=== PATIENT | female | born 1990 | race African-American/Black ===

== ENCOUNTER 2017-08-28 15:14 | Inpatient (IN) | payer BC ==
[2017-08-28] MEDS ORDERED: Nalbuphine 20 MG/1 ML Amp IVPUSH PRN (16:11)
[2017-08-28] MEDS ORDERED: Sodium Chloride 0.9% 10 ML Syringe FLUSH PRN (16:11)
[2017-08-28] MEDS ORDERED: Ondansetron 4 MG/2 ML SDV IVPUSH PRN (16:11)
[2017-08-28] MEDS ORDERED: Oxytocin/Lactated Ringers 10 UNIT/1,000 ML BAG IV SCH (16:15)
--- NOTE | 2017-08-28 16:22 | PCM.LDHP ---
L&D History of Present Illness - General Date of Service: 08/28/17 Admit Problem/Dx: Patient Status Order with Admit Dx/Problem 08/28/17 16:11 Patient Status [ADT] Routine Admission Diagnosis/Problem Admission Diagnosis/Problem Normal labor Source of Information: Patient History Limitations: Reports: No Limitations - History of Present Illness Introduction:: Patient is a 26 y/o at 40 5/7 wks who presents for labor. Was seen overnight for concerns of labor, but was only 2 cm dilated and opted for discharge to home. Throughout the day contractions have worsened. Now stronger and closer together. Otherwise doing well. 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 (Approximate): Social & Family History - Tobacco Use Smoking Status *Q: Never Smoker - Alcohol Use Alcohol Use History: No - Recreational Drug Use Recreational Drug Use: No H&P Review of Systems - Review of Systems: Review Of Systems: See Below General: Reports: No Symptoms Pulmonary: Reports: No Symptoms Cardiovascular: Reports: No Symptoms Gastrointestinal: Reports: Abdominal Pain Genitourinary: Reports: No Symptoms Musculoskeletal: Reports: No Symptoms L&D Exam - Exam Exam: See Below - Vital Signs Weight: 76.204 kg - OB Specific Contraction Intensity: Moderate Movement: Active Heart Tones: Present Heart Tones per Min: 135 Heart Rate (FHR) Variability: Moderate (6-25 bmp) Presentation: Vertex - Rogers Score Rogers Score Cervix Position: Posterior Rogers Score Consistency: Soft Rogers Score Effacement: >80% Rogers Score Dilation: 1-2 cm Rogers Score Infant's Station: -2 Rogers Score Total: 7 - Exam General: Alert, Oriented, Cooperative Lungs: Clear to Auscultation, Normal Respiratory Effort Cardiovascular: Regular Rate, Regular Rhythm GI/Abdominal Exam: Soft, Non-Tender Genitourinary: Normal external exam Extremities: Normal Inspection Skin: Warm, Dry, Intact - Problem List (1) 40 weeks gestation of SNOMED Code(s): 92435609 ICD Code: Z3A.40 - 40 WEEKS GESTATION OF Status: Acute Current Visit: Yes (2) Normal labor SNOMED Code(s): 62826747 ICD Code: O80 - ENCOUNTER FOR FULL-TERM UNCOMPLICATED DELIVERY; Z37.9 - OUTCOME OF DELIVERY, UNSPECIFIED Status: Acute Current Visit: Yes (3) Spontaneous rupture of membranes SNOMED Code(s): 523297043 ICD Code: [id number] - Status: Acute Current Visit: Yes Problem List Initiated/Reviewed/Updated: Yes Orders Last 24hrs: Active Orders 24 hr Category Date Time Status Patient Status [ADT] Routine ADT 08/28/17 16:11 Active Activity as Tolerated [RC] PFP Care 08/28/17 16:11 Active Communication Order [RC] ASDIRECTED Care 08/28/17 16:11 Active Heart Tones [RC] ASDIRECTED Care 08/28/17 16:12 Active Notify Provider [RC] PFP Care 08/28/17 16:11 Active Notify Provider [RC] PRN Care 08/28/17 16:11 Active Peripheral IV Care [RC] . DIRECTED Care 08/28/17 16:12 Active Vital Signs [RC] PER UNIT ROUTINE Care 08/28/17 16:11 Active Regular Diet [DIET] Diet 08/28/17 Dinner Active AMNISURE RUPTURE MEMBRAN [BF] Routine Lab 08/28/17 16:10 Received CBC W/O DIFF,HEMOGRAM [HEME] Routine Lab 08/28/17 16:11 Ordered TYPE AND SCREEN [BBK] Routine Lab 08/28/17 16:11 Ordered Lactated Ringers [Ringers, Lactated] 1,000 ml Med 08/28/17 16:15 Active IV ASDIRECTED Nalbuphine [Nubain] Med 08/28/17 16:11 Active 10 mg IVPUSH Q2H PRN Ondansetron [Zofran] Med 08/28/17 16:11 Active 4 mg IVPUSH Q4H PRN Oxytocin/Lactated Ringers [Pitocin in LR 10 Units/1,000 Med 08/28/17 16:15 Active ML] 10 unit in 1,000 ml IV .CONTINUOUS Sodium Chloride 0.9% [Saline Flush] Med 08/28/17 16:11 Active 10 ml FLUSH ASDIRECTED PRN Electronic Heart Tones Ext w TOCO [WOMSER] Oth 08/28/17 16:11 Ordered Routine Electronic Heart Tones Internal [WOMSER] Per Unit Oth 08/28/17 16:11 Ordered Routine Peripheral IV Insertion Adult [OM.PC] Routine Oth 08/28/17 16:11 Ordered Resuscitation Status Routine Resus Stat 08/28/17 16:11 Ordered Medication Orders Lactated Ringer's (Ringers, Lactated) 1,000 mls @ 100 mls/hr IV ASDIRECTED JOSE LUIS Oxytocin/Lactated Ringer's (Pitocin In Lr 10 Units/1,000 Ml) 10 unit in 1,000 mls @ 500 mls/hr IV .CONTINUOUS JOSE LUIS Nalbuphine HCl (Nubain) 10 mg IVPUSH Q2H PRN PRN Reason: Pain (moderate 4-6) Ondansetron HCl (Zofran) 4 mg IVPUSH Q4H PRN PRN Reason: Nausea/Vomiting Sodium Chloride (Saline Flush) 10 ml FLUSH ASDIRECTED PRN PRN Reason: Keep Vein Open Assessment/Plan Comment:: 26 y/o at 40 5/7 wks presents in labor/SROM * CBC and T&S * GBS negative, no need for antibiotics * Pain management per patient preference * Anticipate
[2017-08-28] MEDS ORDERED: FLU Vacc QS 2017-18 (6mos UP)/PF 60 MCG/0.5 ML Syringe IM ONE (17:55)
[2017-08-28] MEDS ORDERED: fentaNYL 100 MCG/2 ML SDV EPIDUR PRN (21:57)
[2017-08-28] MEDS ORDERED: ePHEDrine 50 MG/ML SDV IVPUSH PRN (21:57)
[2017-08-28] MEDS ORDERED: diphenhydrAMINE 50 MG/ML SDV IVPUSH PRN (21:57)
[2017-08-28] MEDS ORDERED: Bupivacaine/fentaNYL/NS 100 ML Bag EPIDUR SCH (22:00)
[2017-08-28] MEDS: Lactated Ringers 1,000 ML IV SCH ×2 (22:40→23:14)
--- NOTE | 2017-08-29 01:12 | PCM.PREANE ---
Preanesthetic Assessment - Anesthesia/Transfusion/Family Hx Anesthesia History: No Prior Anesthesia Family History of Anesthesia Reaction: No Transfusion History: No Prior Transfusion(s) Intubation History: Unknown - Review of Systems General: No Symptoms Pulmonary: No Symptoms Cardiovascular: No Symptoms Neurological: No Symptoms Other: Reports: None - Physical Assessment O2 Sat by Pulse Oximetry: 97 Respiratory Rate: 20 Vital Signs: Last Vital Signs Temp 37.1 C 08/28/17 16:11 Pulse 88 08/28/17 16:11 Resp 20 08/28/17 16:11 BP 108/68 08/28/17 16:11 Pulse Ox 97 08/28/17 16:11 Height: 1.68 m Weight: 76.204 kg ASA Class: 2 Mental Status: Alert & Oriented x3 Airway Class: Mallampati = 1 Dentition: Reports: Normal Dentition Thyro-Mental Finger Breadths: 3 Mouth Opening Finger Breadths: 3 ROM/Head Extension: Full Lungs: Clear to Auscultation, Normal Respiratory Effort Cardiovascular: Regular Rate, Regular Rhythm - Lab Values: Laboratory Last Values WBC 10.31 K/mm3 (3.98-10.04) H 08/28/17 16:35 RBC 4.88 M/mm3 (3.98-5.22) 08/28/17 16:35 Hgb 14.4 gm/L (11.2-15.7) 08/28/17 16:35 Hct 42.8 % (34.1-44.9) 08/28/17 16:35 MCV 87.7 fl (79.4-94.8) 08/28/17 16:35 MCH 29.5 pg (25.6-32.2) 08/28/17 16:35 MCHC 33.6 g/dl (32.2-35.5) 08/28/17 16:35 RDW Std Deviation 44.0 fL (36.4-46.3) 08/28/17 16:35 Plt Count 162 K/mm3 (182-369) L 08/28/17 16:35 MPV 10.7 fl (9.4-12.3) 08/28/17 16:35 Membrane Rupture Positive H 08/28/17 16:10 Blood Type B POSITIVE 08/28/17 16:33 Gel Antibody Screen Negative 08/28/17 16:33 - Allergies Allergies/Adverse Reactions: Allergies Allergy/AdvReac Type Severity Reaction Status Date / Time No Known Allergies Allergy Verified 08/28/17 04:43 - Acknowledgements Anesthesia Type Planned: Epidural Pt an Appropriate Candidate for the Planned Anesthesia: Yes Alternatives and Risks of Anesthesia Discussed w Pt/Guardian: Yes Pt/Guardian Understands and Agrees with Anesthesia Plan: Yes PreAnesthesia Questionnaire - Past Health History Medical/Surgical History: Denies 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: - SUBSTANCE USE Smoking Status *Q: Never Smoker Tobacco Use Within Last Twelve Months: No Second Hand Smoke Exposure: No Recreational Drug Use History: No - HOME MEDS Home Medications: Home Meds Ferrous Sulfate [Slow Fe] 325 mg PO DAILY 08/28/17 [History] Prenat Vit Comb.10/Iron/Fa/Dha [Vitafol-OB + DHA] 1 tab PO DAILY 08/28/17 [ History] - CURRENT (IN HOUSE) MEDS Current Meds: Current Medications Diphenhydramine HCl (Benadryl) 25 mg IVPUSH Q6H PRN PRN Reason: Pruritis Ephedrine Sulfate (Ephedrine Sulfate) 5 mg IVPUSH ASDIRECTED PRN PRN Reason: Hypotension Fentanyl (Sublimaze) 100 mcg EPIDUR ONETIME PRN PRN Reason: Pain Last Admin: 08/29/17 00:48 Dose: 100 mcg Fentanyl/Bupivacaine HCl (Fentanyl/Bupivacaine/Ns 2 Mcg-0.125% 100 Ml) 100 ml EPIDUR ASDIRECTED JOSE LUIS Last Admin: 08/29/17 00:48 Dose: 100 ml Lactated Ringer's (Ringers, Lactated) 1,000 mls @ 100 mls/hr IV ASDIRECTED JOSE LUIS Last Admin: 08/28/17 23:14 Dose: 100 mls/hr Oxytocin/Lactated Ringer's (Pitocin In Lr 10 Units/1,000 Ml) 10 unit in 1,000 mls @ 500 mls/hr IV .CONTINUOUS [facility] Nalbuphine HCl (Nubain) 10 mg IVPUSH Q2H PRN PRN Reason: Pain (moderate 4-6) Last Admin: 08/28/17 22:32 Dose: 10 mg Ondansetron HCl (Zofran) 4 mg IVPUSH Q4H PRN PRN Reason: Nausea/Vomiting Sodium Chloride (Saline Flush) 10 ml FLUSH ASDIRECTED PRN PRN Reason: Keep Vein Open Discontinued Medications Influenza Virus Vaccine (Flulaval Quad [id number]) 60 mcg IM ONETIME ONE Stop: 08/28/17 17:56
[2017-08-29] MEDS: Lactated Ringers 1,000 ML IV SCH ×2 (01:25→03:20)
--- NOTE | 2017-08-29 08:10 | PCM.DEL ---
L & D Note - General Info Date of Service: 08/29/17 - Delivery Note Labor: Spontaneous Delivery Outcome: Livebirth Delivery Method: Spontaneous Vaginal Delivery-Single Delivery Mode: Spontaneous Presentation: Right Occiput Anterior (ELISE) Nuchal Cord: None Anesthesia Type: Epidural Amniotic Fluid Description: Clear Episiotomy Type: None Laceration: 2nd Degree, Perineal Suture type: Vicryl Suture size: 2-0 Placenta: Intact, Spontaneous Cord: 3 Vessels Estimated Blood Loss: 250 Resuscitation Needed: Yes : Bulb Syringe, Stimulated, Warmed, [place] Used Score 1 min: 9 Score 5 min: 9 Delivery Comments (Free Text/Narrative):: Patient found to be complete and began pushing. With maternal pushing effort head delivered from an ELISE presentation. No nuchal cord present. With gentle downward traction the shoulders and body delivered. Infant placed on maternal abdomen. Cord clamped and cut. Cord blood obtained. Placenta allowed time to separate and expelled. Inspection of the perineum showed a 2nd degree laceration which was repaired with a 2-0 vicryl in the typical fashion. - Patient Data Vitals - Most Recent: Last Vital Signs Temp 37.1 C 08/28/17 16:11 Pulse 88 08/28/17 16:11 Resp 20 08/29/17 01:11 BP 108/68 08/28/17 16:11 Pulse Ox 97 08/29/17 01:11 Weight - Most Recent: 76.204 kg I&O - Last 24 Hours: Intake & Output 08/28/17 08/29/17 08/29/17 22:59 06:59 14:59 Intake Total 5000 Balance 5000 Lab Results Last 24 Hours: Laboratory Results - last 24 hr 08/28/17 08/28/17 08/28/17 Range/Units 16:10 16:33 16:35 WBC 10.31 H (3.98-10.04) K/mm3 RBC 4.88 (3.98-5.22) M/mm3 Hgb 14.4 (11.2-15.7) gm/L Hct 42.8 (34.1-44.9) % MCV 87.7 (79.4-94.8) fl MCH 29.5 (25.6-32.2) pg MCHC 33.6 (32.2-35.5) g/dl RDW Std Deviation 44.0 (36.4-46.3) fL Plt Count 162 L (182-369) K/mm3 MPV 10.7 (9.4-12.3) fl Membrane Rupture Positive H Blood Type B POSITIVE Gel Antibody Screen Negative Med Orders - Current: Current Medications Diphenhydramine HCl (Benadryl) 25 mg IVPUSH Q6H PRN PRN Reason: Pruritis Ephedrine Sulfate (Ephedrine Sulfate) 5 mg IVPUSH ASDIRECTED PRN PRN Reason: Hypotension Fentanyl (Sublimaze) 100 mcg EPIDUR ONETIME PRN PRN Reason: Pain Last Admin: 08/29/17 00:48 Dose: 100 mcg Fentanyl/Bupivacaine HCl (Fentanyl/Bupivacaine/Ns 2 Mcg-0.125% 100 Ml) 100 ml EPIDUR ASDIRECTED JOSE LUIS Last Admin: 08/29/17 00:48 Dose: 100 ml Lactated Ringer's (Ringers, Lactated) 1,000 mls @ 100 mls/hr IV ASDIRECTED JOSE LUIS Last Admin: 08/29/17 03:20 Dose: 100 mls/hr Oxytocin/Lactated Ringer's (Pitocin In Lr 10 Units/1,000 Ml) 10 unit in 1,000 mls @ 500 mls/hr IV .CONTINUOUS JOSE LUIS Nalbuphine HCl (Nubain) 10 mg IVPUSH Q2H PRN PRN Reason: Pain (moderate 4-6) Last Admin: 08/28/17 22:32 Dose: 10 mg Ondansetron HCl (Zofran) 4 mg IVPUSH Q4H PRN PRN Reason: Nausea/Vomiting Sodium Chloride (Saline Flush) 10 ml FLUSH ASDIRECTED PRN PRN Reason: Keep Vein Open Discontinued Medications Influenza Virus Vaccine (Flulaval Quad [id number]) 60 mcg IM ONETIME ONE Stop: 08/28/17 17:56 - Problem List & Annotations (1) 40 weeks gestation of SNOMED Code(s): 09582236 Code(s): Z3A.40 - 40 WEEKS GESTATION OF Status: Acute Current Visit: Yes (2) Normal labor SNOMED Code(s): 14658854 Code(s): O80 - ENCOUNTER FOR FULL-TERM UNCOMPLICATED DELIVERY; Z37.9 - OUTCOME OF DELIVERY, UNSPECIFIED Status: Acute Current Visit: Yes (3) Spontaneous rupture of membranes SNOMED Code(s): 061591123 Code(s): AVD1747 - Status: Acute Current Visit: Yes (4) Vaginal delivery SNOMED Code(s): 310958035 Code(s): O80 - ENCOUNTER FOR FULL-TERM UNCOMPLICATED DELIVERY Status: Acute Current Visit: Yes - Problem List Review Problem List Initiated/Reviewed/Updated: Yes - My Orders Last 24 Hours: My Active Orders 08/28/17 16:11 Patient Status [ADT] Routine Activity as Tolerated [RC] PFP Communication Order [RC] ASDIRECTED Notify Provider [RC] PFP Notify Provider [RC] PRN Vital Signs [RC] PER UNIT ROUTINE Nalbuphine [Nubain] 10 mg IVPUSH Q2H PRN Ondansetron [Zofran] 4 mg IVPUSH Q4H PRN Sodium Chloride 0.9% [Saline Flush] 10 ml FLUSH ASDIRECTED PRN Electronic Heart Tones Ext w TOCO [WOMSER] Routine Electronic Heart Tones Internal [WOMSER] Per Unit Routine Peripheral IV Insertion Adult [OM.PC] Routine Resuscitation Status Routine 08/28/17 16:12 Peripheral IV Care [RC] . DIRECTED 08/28/17 16:15 Lactated Ringers [Ringers, Lactated] 1,000 ml IV ASDIRECTED Oxytocin/Lactated Ringers [Pitocin in LR 10 Units/1,000 ML] 10 unit in 1,000 ml IV .CONTINUOUS 08/28/17 Dinner Regular Diet [DIET] 08/29/17 07:31 Urinary Catheter Assessment [RC] ASDIRECTED 08/29/17 08:08 Patient Status Manage Transfer [TRANSFER] Routine - Assessment Assessment:: 26 y/o G1 now P1001 PPD#0 from at 40 6/7 wks - Plan Plan:: * Routine cares * Encourage breast feeding * Discharge home in 1-2 days
[2017-08-29] MEDS ORDERED: Witch Hazel Medicated Pads 100/Jar TOP PRN (09:04)
[2017-08-29] MEDS ORDERED: Docusate Sodium 100 MG Cap PO PRN (09:04)
[2017-08-29] MEDS ORDERED: Lanolin 100% Cream 7 GM Tube TOP PRN (09:04)
[2017-08-29] MEDS ORDERED: Acetaminophen 325 MG Tab PO PRN (09:04)
--- NOTE | 2017-08-29 14:47 | PCM48HPAN ---
Post Anesthesia Note - EVALUATION WITHIN 48HRS OF ANESTHETIC Vital Signs in Normal Range: Yes Patient Participated in Evaluation: Yes Respiratory Function Stable: Yes Airway Patent: Yes Cardiovascular Function Stable: Yes Hydration Status Stable: Yes Pain Control Satisfactory: Yes Nausea and Vomiting Control Satisfactory: Yes Mental Status Recovered: Yes - COMMENTS/OBSERVATIONS Free Text/Narrative:: Hafsa is sitting up at the side of her bed with her family. She is very satisfied with her epidural pain control. She has been up walking around today. Baby is in the room and doing well. She denies any weakness and/or numbness and tingling in her lower extremities. She denies headache. She has some soreness at the epidural insertion site. She states it is mild. She was encouraged to call if she had any further concerns and/or if her back soreness worsened. No apparent complications noted at this time.
[2017-08-29] MEDS: Benzocaine/Menthol 20%-0.5% Spray 56 GM Canister TOP PRN (17:00)
[2017-08-29] MEDS: Ibuprofen 600 MG Tab PO PRN (22:16)
--- NOTE | 2017-08-30 06:45 | PCM.PNPP ---
- General Info Date of Service: 08/30/17 Functional Status: Reports: Pain Controlled, Tolerating Diet, Ambulating, Urinating - Review of Systems General: Reports: No Symptoms Pulmonary: Reports: No Symptoms Cardiovascular: Reports: No Symptoms Gastrointestinal: Reports: No Symptoms Genitourinary: Reports: No Symptoms Musculoskeletal: Reports: No Symptoms - Patient Data Vital Signs - Most Recent: Last Vital Signs Temp 36.8 C 08/30/17 03:58 Pulse 77 08/30/17 03:58 Resp 12 08/30/17 03:58 BP 109/76 08/30/17 03:58 Pulse Ox 99 08/30/17 03:58 Weight - Most Recent: 76.204 kg I&O - Last 24 Hours: Intake & Output 08/29/17 08/29/17 08/30/17 14:59 22:59 06:59 Intake Total 5000 Balance 5000 Med Orders - Current: Current Medications Acetaminophen (Tylenol) 650 mg PO Q4H PRN PRN Reason: mild pain or fever Benzocaine/Menthol (Dermoplast Pain Relief [place]) 0 gm TOP ASDIRECTED PRN PRN Reason: Perineal Comfort Measure Last Admin: 08/29/17 17:00 Dose: 1 can Docusate Sodium (Colace) 100 mg PO BID PRN PRN Reason: Constipation Emollient Ointment (Lansinoh Hpa) 0 gm TOP ASDIRECTED PRN PRN Reason: Sore Nipples Ibuprofen (Motrin) 600 mg PO Q6H PRN PRN Reason: Mild pain or fever Last Admin: 08/29/17 22:16 Dose: 600 mg Witch Celeste (Tucks) 1 pad TOP ASDIRECTED PRN PRN Reason: Hemorrhoid pain Last Admin: 08/29/17 17:01 Dose: 1 container Discontinued Medications Diphenhydramine HCl (Benadryl) 25 mg IVPUSH Q6H PRN PRN Reason: Pruritis Ephedrine Sulfate (Ephedrine Sulfate) 5 mg IVPUSH ASDIRECTED PRN PRN Reason: Hypotension Fentanyl (Sublimaze) 100 mcg EPIDUR ONETIME PRN PRN Reason: Pain Last Admin: 08/29/17 00:48 Dose: 100 mcg Fentanyl/Bupivacaine HCl (Fentanyl/Bupivacaine/Ns 2 Mcg-0.125% 100 Ml) 100 ml EPIDUR ASDIRECTED JOSE LUIS Last Admin: 08/29/17 00:48 Dose: 100 ml Lactated Ringer's (Ringers, Lactated) 1,000 mls @ 100 mls/hr IV ASDIRECTED [facility] Last Admin: 08/29/17 03:20 Dose: 100 mls/hr Oxytocin/Lactated Ringer's (Pitocin In Lr 10 Units/1,000 Ml) 10 unit in 1,000 mls @ 500 mls/hr IV .CONTINUOUS [facility] Influenza Virus Vaccine (Flulaval Quad [id number]) 60 mcg IM ONETIME ONE Stop: 08/28/17 17:56 Nalbuphine HCl (Nubain) 10 mg IVPUSH Q2H PRN PRN Reason: Pain (moderate 4-6) Last Admin: 08/28/17 22:32 Dose: 10 mg Ondansetron HCl (Zofran) 4 mg IVPUSH Q4H PRN PRN Reason: Nausea/Vomiting Sodium Chloride (Saline Flush) 10 ml FLUSH ASDIRECTED PRN PRN Reason: Keep Vein Open - Infant Interaction Disposition, : in Room with Family Interaction: Holding Infant Infant Feeding: Attempted ; Nursed Fair/Poor Support Person: - Recovery Exam Fundal Tone: Firm Fundal Level: 2 Fingerbreadths Below Umbilicus Fundal Placement: Midline Lochia Amount: Scant Lochia Color: Rubra/Red Perineum Description: Edematous Other Perinuem Description: 2nd degree laceration with repair Episiotomy/Laceration: Approximated Bladder Status: Nonpalpable Urinary Elimination: Voided - Exam General: Alert, Oriented, Cooperative GI/Abdominal Exam: Soft, Non-Tender Extremities: Normal Inspection Skin: Warm, Dry, Intact - Problem List & Annotations (1) 40 weeks gestation of SNOMED Code(s): 65410958 Code(s): Z3A.40 - 40 WEEKS GESTATION OF Status: Acute Current Visit: Yes (2) Normal labor SNOMED Code(s): 20336873 Code(s): O80 - ENCOUNTER FOR FULL-TERM UNCOMPLICATED DELIVERY; Z37.9 - OUTCOME OF DELIVERY, UNSPECIFIED Status: Acute Current Visit: Yes (3) Spontaneous rupture of membranes SNOMED Code(s): 711360673 Code(s): DTP4799 - Status: Acute Current Visit: Yes (4) Vaginal delivery SNOMED Code(s): 086376940 Code(s): O80 - ENCOUNTER FOR FULL-TERM UNCOMPLICATED DELIVERY Status: Acute Current Visit: Yes - Problem List Review Problem List Initiated/Reviewed/Updated: Yes - My Orders Last 24 Hours: My Active Orders 08/29/17 09:04 Activity as Tolerated [RC] PER UNIT ROUTINE Vital Signs [RC] 04,12,20 Acetaminophen [Tylenol] 650 mg PO Q4H PRN Benzocaine/Menthol [Dermoplast Pain Relief [place]] See Dose Instructions TOP ASDIRECTED PRN Docusate Sodium [Colace] 100 mg PO BID PRN Ibuprofen [Motrin] 600 mg PO Q6H PRN Lanolin [Lansinoh HPA] See Dose Instructions TOP ASDIRECTED PRN Witch Celeste [Tucks] 1 pad TOP ASDIRECTED PRN Assess Lochia [WOMSER] Per Unit Routine Assess Uterine Involution [WOMSER] Per Unit Routine Breast Pump [WOMSER] Per Unit Routine Heat Therapy [OM.PC] PRN Ice Therapy [OM.PC] Per Unit Routine Perineal Care [OM.PC] Per Unit Routine Peripheral IV Discontinue [OM.PC] Routine Sitz Bath [OM.PC] Per Unit Routine 08/29/17 Breakfast Regular Diet [DIET] 08/30/17 09:04 Heat Therapy [OM.PC] PRN - Assessment Assessment:: 26 y/o G1 now P1001 PPD#1 from at 40 6/7 wks - Plan Plan:: * Routine cares * Encourage breast feeding * Discharge home tomorrow
[2017-08-30] MEDS: Ibuprofen 600 MG Tab PO PRN ×2 (08:26→17:09)
[2017-08-31] MEDS: Ibuprofen 600 MG Tab PO PRN ×2 (04:34→11:02)
--- NOTE | 2017-08-31 07:07 | PCM.PNPP ---
- General Info Date of Service: 08/31/17 Functional Status: Reports: Pain Controlled, Tolerating Diet, Ambulating, Urinating - Review of Systems General: Reports: No Symptoms Pulmonary: Reports: No Symptoms Cardiovascular: Reports: No Symptoms Gastrointestinal: Reports: No Symptoms Genitourinary: Reports: No Symptoms - Patient Data Vital Signs - Most Recent: Last Vital Signs Temp 37.0 C 08/31/17 04:31 Pulse 80 08/31/17 04:31 Resp 12 08/31/17 04:31 BP 98/67 08/31/17 04:31 Pulse Ox 96 08/31/17 04:31 Weight - Most Recent: 76.204 kg I&O - Last 24 Hours: Intake & Output 08/30/17 08/31/17 08/31/17 22:59 06:59 14:59 Intake Total 120 Balance 120 Med Orders - Current: Current Medications Acetaminophen (Tylenol) 650 mg PO Q4H PRN PRN Reason: mild pain or fever Benzocaine/Menthol (Dermoplast Pain Relief [place]) 0 gm TOP ASDIRECTED PRN PRN Reason: Perineal Comfort Measure Last Admin: 08/29/17 17:00 Dose: 1 can Docusate Sodium (Colace) 100 mg PO BID PRN PRN Reason: Constipation Last Admin: 08/30/17 21:22 Dose: 100 mg Emollient Ointment (Lansinoh Hpa) 0 gm TOP ASDIRECTED PRN PRN Reason: Sore Nipples Last Admin: 08/30/17 17:07 Dose: 1 tube Ibuprofen (Motrin) 600 mg PO Q6H PRN PRN Reason: Mild pain or fever Last Admin: 08/31/17 04:34 Dose: 600 mg Witch Celeste (Tucks) 1 pad TOP ASDIRECTED PRN PRN Reason: Hemorrhoid pain Last Admin: 08/29/17 17:01 Dose: 1 container Discontinued Medications Diphenhydramine HCl (Benadryl) 25 mg IVPUSH Q6H PRN PRN Reason: Pruritis Ephedrine Sulfate (Ephedrine Sulfate) 5 mg IVPUSH ASDIRECTED PRN PRN Reason: Hypotension Fentanyl (Sublimaze) 100 mcg EPIDUR ONETIME PRN PRN Reason: Pain Last Admin: 08/29/17 00:48 Dose: 100 mcg Fentanyl/Bupivacaine HCl (Fentanyl/Bupivacaine/Ns 2 Mcg-0.125% 100 Ml) 100 ml EPIDUR ASDIRECTED [facility] Last Admin: 08/29/17 00:48 Dose: 100 ml Lactated Ringer's (Ringers, Lactated) 1,000 mls @ 100 mls/hr IV ASDIRECTED [facility] Last Admin: 08/29/17 03:20 Dose: 100 mls/hr Oxytocin/Lactated Ringer's (Pitocin In Lr 10 Units/1,000 Ml) 10 unit in 1,000 mls @ 500 mls/hr IV .CONTINUOUS [facility] Influenza Virus Vaccine (Flulaval Quad [id number]) 60 mcg IM ONETIME ONE Stop: 08/28/17 17:56 Last Admin: 08/30/17 21:08 Dose: 60 mcg Nalbuphine HCl (Nubain) 10 mg IVPUSH Q2H PRN PRN Reason: Pain (moderate 4-6) Last Admin: 08/28/17 22:32 Dose: 10 mg Ondansetron HCl (Zofran) 4 mg IVPUSH Q4H PRN PRN Reason: Nausea/Vomiting Sodium Chloride (Saline Flush) 10 ml FLUSH ASDIRECTED PRN PRN Reason: Keep Vein Open - Interaction Disposition, : [place] in Room with Family Interaction: Holding Infant Feeding: Attempted ; Nursed Fair/Poor Support Person: - Recovery Exam Fundal Tone: Firm Fundal Level: 2 Fingerbreadths Below Umbilicus Fundal Placement: Midline Lochia Amount: Small Lochia Color: Rubra/Red Perineum Description: Other (see below) Other Perinuem Description: second degreee lac with repair Episiotomy/Laceration: Approximated Bladder Status: Voiding Urinary Elimination: Voided - Exam General: Alert, Oriented, Cooperative GI/Abdominal Exam: Soft, Non-Tender Extremities: Normal Inspection Skin: Warm, Dry, Intact - Problem List & Annotations (1) 40 weeks gestation of SNOMED Code(s): 88673444 Code(s): Z3A.40 - 40 WEEKS GESTATION OF Status: Acute (2) Normal labor SNOMED Code(s): 81234499 Code(s): O80 - ENCOUNTER FOR FULL-TERM UNCOMPLICATED DELIVERY; Z37.9 - OUTCOME OF DELIVERY, UNSPECIFIED Status: Acute (3) Spontaneous rupture of membranes SNOMED Code(s): 213612541 Code(s): BVS8739 - Status: Acute (4) Vaginal delivery SNOMED Code(s): 776931659 Code(s): O80 - ENCOUNTER FOR FULL-TERM UNCOMPLICATED DELIVERY Status: Acute - Problem List Review Problem List Initiated/Reviewed/Updated: Yes - My Orders Last 24 Hours: My Active Orders 08/30/17 09:04 Heat Therapy [OM.PC] PRN - Assessment Assessment:: 26 y/o G1 now P1001 PPD#2 from at 40 6/7 wks - Plan Plan:: * Routine cares * Encourage breast feeding * Discharge home today
--- NOTE | 2017-08-31 07:08 | PCM.DCSUM1 ---
Discharge Summary - Discharge Data Discharge Date: 08/31/17 Discharge Disposition: Home, Self-Care 01 Condition: Good - Discharge Diagnosis/Problem(s) (1) 40 weeks gestation of SNOMED Code(s): 20084624 ICD Code: Z3A.40 - 40 WEEKS GESTATION OF Status: Acute (2) Normal labor SNOMED Code(s): 42891882 ICD Code: O80 - ENCOUNTER FOR FULL-TERM UNCOMPLICATED DELIVERY; Z37.9 - OUTCOME OF DELIVERY, UNSPECIFIED Status: Acute (3) Spontaneous rupture of membranes SNOMED Code(s): 403574369 ICD Code: [id number] - Status: Acute (4) Vaginal delivery SNOMED Code(s): 486772541 ICD Code: O80 - ENCOUNTER FOR FULL-TERM UNCOMPLICATED DELIVERY Status: Acute - Patient Summary/Data Complications: None Consults: None Recommended Follow-up Testing/Procedures: Follow up with Dr. Hearn in 2 weeks Hospital Course: 26 y/o presented at 40 5/7 wks in labor/SROM. She progressed well to complete dilation without the need for augmentation. She underwent an uncomplicated . she did well and was discharged home on PPD#2 - Patient Instructions Diet: Regular Diet as Tolerated Activity: As Tolerated Activity, Other: Pelvic rest for 6 weeks Driving: May Drive Today Showering/Bathing: May Shower Showering/Bathing, Other: May bathe Notify Provider of: Fever, Increased Pain, Swelling and Redness, Drainage, Nausea and/or Vomiting - Discharge Plan Home Medications: Home Meds Ferrous Sulfate [Slow Fe] 325 mg PO DAILY 08/28/17 [History] Prenat Vit Comb.10/Iron/Fa/Dha [Vitafol-OB + DHA] 1 tab PO DAILY 08/28/17 [ History] Docusate Sodium [Colace] 100 mg PO BID PRN cap 08/30/17 [Rx] Ibuprofen [IJD: Ibuprofen] 600 mg PO Q6H PRN tablet 08/30/17 [Rx] Patient Handouts: Vaginal Delivery, Care After Referrals: Moise Hearn MD [Primary Care Provider] - (2 weeks for check) - Discharge Summary/Plan Comment DC Time >30 min.: No - Patient Data Vitals - Most Recent: Last Vital Signs Temp 37.0 C 08/31/17 04:31 Pulse 80 08/31/17 04:31 Resp 12 08/31/17 04:31 BP 98/67 08/31/17 04:31 Pulse Ox 96 08/31/17 04:31 Weight - Most Recent: 76.204 kg I&O - Last 24 hours: Intake & Output 08/30/17 08/31/17 08/31/17 22:59 06:59 14:59 Intake Total 120 Balance 120 Med Orders - Current: Current Medications Acetaminophen (Tylenol) 650 mg PO Q4H PRN PRN Reason: mild pain or fever Benzocaine/Menthol (Dermoplast Pain Relief [place]) 0 gm TOP ASDIRECTED PRN PRN Reason: Perineal Comfort Measure Last Admin: 08/29/17 17:00 Dose: 1 can Docusate Sodium (Colace) 100 mg PO BID PRN PRN Reason: Constipation Last Admin: 08/30/17 21:22 Dose: 100 mg Emollient Ointment (Lansinoh Hpa) 0 gm TOP ASDIRECTED PRN PRN Reason: Sore Nipples Last Admin: 08/30/17 17:07 Dose: 1 tube Ibuprofen (Motrin) 600 mg PO Q6H PRN PRN Reason: Mild pain or fever Last Admin: 08/31/17 04:34 Dose: 600 mg Witch [place]este (Tucks) 1 pad TOP ASDIRECTED PRN PRN Reason: Hemorrhoid pain Last Admin: 08/29/17 17:01 Dose: 1 container Discontinued Medications Diphenhydramine HCl (Benadryl) 25 mg IVPUSH Q6H PRN PRN Reason: Pruritis Ephedrine Sulfate (Ephedrine Sulfate) 5 mg IVPUSH ASDIRECTED PRN PRN Reason: Hypotension Fentanyl (Sublimaze) 100 mcg EPIDUR ONETIME PRN PRN Reason: Pain Last Admin: 08/29/17 00:48 Dose: 100 mcg Fentanyl/Bupivacaine HCl (Fentanyl/Bupivacaine/Ns 2 Mcg-0.125% 100 Ml) 100 ml EPIDUR ASDIRECTED JOSE LUIS Last Admin: 08/29/17 00:48 Dose: 100 ml Lactated Ringer's (Ringers, Lactated) 1,000 mls @ 100 mls/hr IV ASDIRECTED JOSE LUIS Last Admin: 08/29/17 03:20 Dose: 100 mls/hr Oxytocin/Lactated Ringer's (Pitocin In Lr 10 Units/1,000 Ml) 10 unit in 1,000 mls @ 500 mls/hr IV .CONTINUOUS JOSE LUIS Influenza Virus Vaccine (Flulaval Quad [id number]) 60 mcg IM ONETIME ONE Stop: 08/28/17 17:56 Last Admin: 08/30/17 21:08 Dose: 60 mcg Nalbuphine HCl (Nubain) 10 mg IVPUSH Q2H PRN PRN Reason: Pain (moderate 4-6) Last Admin: 08/28/17 22:32 Dose: 10 mg Ondansetron HCl (Zofran) 4 mg IVPUSH Q4H PRN PRN Reason: Nausea/Vomiting Sodium Chloride (Saline Flush) 10 ml FLUSH ASDIRECTED PRN PRN Reason: Keep Vein Open *Q Meaningful Use (DIS) - VTE *Q VTE Criteria *Q: - Stroke *Q Stroke Criteria *Q: - AMI *Q AMI Criteria *Q:
[2017-08-31] MEDS: Benzocaine/Menthol 20%-0.5% Spray 56 GM Canister TOP PRN (11:02)
[2017-08-31 11:27] VITALS: BP 116/70
== END 2017-08-31 15:00 | disposition home or self-care (01) | DRG 560 ==
LOC: JD.OB 15:14 → JD.OBCHECK 15:14 → JD.OB 16:11 → OBSVTOIN 08-29 07:49 → JD.OB 08-29 07:49
PROVIDERS: ADMIT Obstetrics & Gynecology; ATTEND Obstetrics & Gynecology
PROC: 00HU33Z Insertion of Infusion Device into Spinal Canal, Percutaneous Approach (ICD-10-PCS; 2017-08-28)
PROC: 3E0R3BZ Introduction of Anesthetic Agent into Spinal Canal, Percutaneous Approach (ICD-10-PCS; 2017-08-28)
PROC: 10E0XZZ Delivery of Products of Conception, External Approach (ICD-10-PCS; principal; 2017-08-29)
PROC: 0KQM0ZZ Repair Perineum Muscle, Open Approach (ICD-10-PCS; 2017-08-29)
DX: O48.0 Post-term pregnancy (principal); O42.92 Full-term premature rupture of membranes, unspecified as to length of time between rupture and onset of labor; O70.1 Second degree perineal laceration during delivery; Z3A.41 41 weeks gestation of pregnancy; Z37.0 Single live birth
CPT/HCPCS: 01967; 36415; 51702; 59025; 59409; 84112; 85027; 86850; 86900; 86901; 90686; A9270-GY; J2300; J3010; J7120

== ENCOUNTER 2019-12-22 09:01 | Inpatient (IN) | payer BC ==
[~2019-12-22 09:01] MED LIST: Bupivacaine 0.25% 10 ML SDV ONE
[2019-12-22] MEDS ORDERED: Oxytocin/Lactated Ringers 10 UNIT/1,000 ML BAG IV SCH ×2 (19:45)
[2019-12-22] MEDS ORDERED: Lidocaine 1% 50 ML MDV INJECT ONE (19:45)
[2019-12-22] MEDS ORDERED: Nalbuphine 10 MG/ML Syringe IVPUSH PRN (19:45)
[2019-12-22] MEDS ORDERED: Sodium Chloride 0.9% 10 ML Syringe FLUSH PRN (19:45)
[2019-12-22] MEDS ORDERED: Ondansetron 4 MG/2 ML SDV IVPUSH PRN (19:45)
[2019-12-22] MEDS ORDERED: Calcium Carbonate 500 MG Tab.Chew PO PRN (19:45)
[2019-12-22] MEDS ORDERED: Acetaminophen 325 MG Tab PO PRN (19:45)
[2019-12-22] MEDS: Lactated Ringers 1,000 ML IV SCH (20:29)
--- NOTE | 2019-12-22 21:20 | PCM.LDHP ---
L&D History of Present Illness - General Date of Service: 12/22/19 Admit Problem/Dx: Patient Status Order with Admit Dx/Problem 12/22/19 19:46 Patient Status [ADT] Routine Admission Diagnosis/Problem Admission Diagnosis/Problem 12/22/19 21:10 Hafsa Is a 29-year-old 2 para 1001 -Omani female who is admitted for elective induction of labor. She presently is at 39-1/7 weeks gestational age with an SNEHAL of 12/28/2019. The procedure elective induction of labor with Pitocin/artificial rupture membranes is discussed in detail patient. She appears to understand and wishes to proceed. Source of Information: Patient History Limitations: Reports: No Limitations - History of Present Illness Introduction:: Hafsa Is a 29-year-old 2 para 1001 -Omani female who is admitted for elective induction of labor. She presently is at 39-1/7 weeks gestational age with an SNEHAL of 12/28/2019. The procedure elective induction of labor with Pitocin/artificial rupture membranes is discussed in detail patient. She appears to understand and wishes to proceed. Patient's course started with first visit 9-5/7 weeks gestational age on 05/30/2019. She was seen on a regular basis. Her vital signs are stable throughout the course, her fundal height growth was appropriate and her weight gain was from 154 pounds up to 176 pounds for a 22 pound gain. The patient's menarche occurred at age 10. Cycles every month. No control to time conception. Her SNEHAL was 12/28/2019 based on her LMP of 2018 and supported by 3 ultrasounds done on 05/30/2019, 08/11/2019 and 08/28/2019. The patient's previous obstetric history includes the followin. Male born 08/[birth year]2017 at 40-6/7 weeks gestational age after 3 hours of labor. Baby weighed 9 lbs. 4 oz. and was delivered by normal spontaneous vaginal delivery. She had an epidural for labor analgesia. Baby is born at [facility]. Child's name is J Carlos Taylor. Desires no epidural in labor and delivery. She is group B strep negative. She has suffered from constipation during the course of . She declined STD testing. She declined genetic testing. Her [place] depression screening score on 08/28/2019 was 1/30. She has a slight language barrier. Patient had her influenza vaccination on 11/06/2019. At the same time she had her T-dap shot. She is rubella immune. Laboratory testing shows her blood to be B+ with a negative and by screen. Initial laboratory testing showed hemoglobin 13.8 and platelets 258,000. Her urine culture was unremarkable. Second trimester laboratory testing showed hemoglobin 11.9 g/dL. Her platelets were 212,000 and her one-hour GTT was 94. Group B strep screen was negative. Allergies: None Medications: 1. Ferrous sulfate 325 mg by mouth daily 2. tablets one by mouth daily Past medical history: 1. Normal spontaneous vaginal delivery 08/29/2017 Past surgical history: Unremarkable Family history: Patient has one aunt on the maternal side with breast cancer history. One sister alive and well age 30. Mother and father killed in warmer. Maternal aunt alive with history of breast cancer at age 50. Rest of family history is unknown. Social history: Patient is . She lives in [place], [place]. Her is Alejandro Pineda. She does not use any significant loss of alcohol, drugs or tobacco. Review of systems: In general patient has no complaints. Baby has been active. Skin: Negative Lungs: No infectious symptoms or shortness of breath Cardiovascular: No chest pain or exercise intolerance Breasts: Breast changes associated with .. GI: Negative : Body habitus changes associated with . Musculoskeletal: Negative Neurological: Negative In general the patient is well-developed, well-nourished, pleasant female of stated age in no acute distress. On last evaluation in clinic patient's weight was 176 pounds. Her blood pressure was 104/60. heart rate is 132. At first visit her weight was 152. Height is 5 feet 6 inches and prepregnancy body mass index is 24.5. Skin is warm dry without lesions. HEENT, neck and back within normal limits. Lungs are clear with good breath sounds in all lung ramos. Cardiovascular exam shows regular and rhythm without murmurs. Abdomen is gravid with a fundal height of 40 cm. Baby in vertex presentation. Genital exam shows cervix to be dilated 2 cm, 80% effaced, very soft, mid position and a -3 station. Baby is in a vertex presentation. Extremities and neurological exam are grossly within normal limits. Pain Score: 4 - Related Data Allergies/Adverse Reactions: Allergies Allergy/AdvReac Type Severity Reaction Status Date / Time No Known Allergies Allergy Verified 12/22/19 19:44 Home Medications: Home Meds Vit 10/Iron/Folic/Dha [Vitafol-OB + DHA] 1 tab PO DAILY 08/28/17 [ History] Past Medical History - Past Health History Medical/Surgical History: Denies Medical/Surgical History CHILD [employer] PRIVATE HOME History: Reports: Social & Family History - Family History Family Medical History: Noncontributory - Caffeine Use Caffeine Use: Reports: None H&P Review of Systems - Review of Systems: Review Of Systems: See Below L&D Exam - Exam Exam: See Below - Vital Signs Weight: 80.286 kg - Patient Data Lab Results Last 24 hrs: Laboratory Results - last 24 hr 12/22/19 Range/Units 20:04 WBC 8.31 (3.98-10.04) K/mm3 RBC 4.40 (3.98-5.22) M/mm3 Hgb 12.3 (11.2-15.7) gm/dl Hct 38.3 (34.1-44.9) % MCV 87.0 (79.4-94.8) fl MCH 28.0 (25.6-32.2) pg MCHC 32.1 L (32.2-35.5) g/dl RDW Std Deviation 50.1 H (36.4-46.3) fL Plt Count 191 (182-369) K/mm3 MPV 11.2 (9.4-12.3) fl Neut % (Auto) 67.0 (34.0-71.1) % Lymph % (Auto) 22.1 (19.3-51.7) % [place] % (Auto) 9.3 (4.7-12.5) % Eos % (Auto) 0.4 L (0.7-5.8) Baso % (Auto) 0.1 (0.1-1.2) % Neut # (Auto) 5.57 (1.56-6.13) K/mm3 Lymph # (Auto) 1.84 (1.18-3.74) K/mm3 [place] # (Auto) 0.77 H (0.24-0.36) K/mm3 Eos # (Auto) 0.03 L (0.04-0.36) K/mm3 Baso # (Auto) 0.01 (0.01-0.08) K/mm3 Result Diagrams: 12/22/19 20:04 Problem List Initiated/Reviewed/Updated: Yes Orders Last 24hrs: Active Orders 24 hr Category Date Time Status Patient Status [ADT] Routine ADT 12/22/19 19:46 Active Activity as Tolerated [RC] PFP Care 12/22/19 19:46 Active Communication Order [RC] ASDIRECTED Care 12/22/19 19:46 Active Heart Tones [RC] ASDIRECTED Care 12/22/19 19:46 Active Non Stress Test [RC] PER UNIT ROUTINE Care 12/22/19 19:46 Active Notify Provider [RC] PFP Care 12/22/19 19:46 Active Notify Provider [RC] PRN Care 12/22/19 19:46 Active Peripheral IV Care [RC] . DIRECTED Care 12/22/19 19:46 Active Vital Signs [RC] PER UNIT ROUTINE Care 12/22/19 19:46 Active Regular Diet [DIET] Diet 12/23/19 Breakfast Active RAPID PLASMA REAGIN,RPR [CHEM] Routine Lab 12/22/19 20:04 Received Acetaminophen [Tylenol] Med 12/22/19 19:45 Active 650 mg PO Q4H PRN Calcium Carbonate [Tums] Med 12/22/19 19:45 Active 1,000 mg PO Q2H PRN Lactated Ringers [Ringers, Lactated] 1,000 ml Med 12/22/19 19:45 Active IV ASDIRECTED Nalbuphine [Nubain] Med 12/22/19 19:45 Active 10 mg IVPUSH Q2H PRN Ondansetron [Zofran] Med 12/22/19 19:45 Active 4 mg IVPUSH Q4H PRN Oxytocin/Lactated Ringers [Pitocin in LR 10 Units/1,000 Med 12/22/19 19:45 Active ML] 10 unit in 1,000 ml IV .CONTINUOUS Oxytocin/Lactated Ringers [Pitocin in LR 10 Units/1,000 Med 12/22/19 19:45 Active ML] 10 unit in 1,000 ml IV TITRATE Sodium Chloride 0.9% [Saline Flush] Med 12/22/19 19:45 Active 10 ml FLUSH ASDIRECTED PRN Electronic Heart Tones Ext w TOCO [WOMSER] Oth 12/22/19 19:46 Ordered Routine Electronic Heart Tones Internal [WOMSER] Per Unit Oth 12/22/19 19:46 Ordered Routine Peripheral IV Insertion Adult [OM.PC] Routine Oth 12/22/19 19:46 Ordered Resuscitation Status Routine Resus Stat 12/22/19 19:45 Ordered Medication Orders Acetaminophen (Tylenol) 650 mg PO Q4H PRN PRN Reason: Pain (Mild 1-3) and fever Last Admin: 12/22/19 20:32 Dose: 650 mg Calcium Carbonate/Glycine (Tums) 1,000 mg PO Q2H PRN PRN Reason: Indigestion Lactated Ringer's (Ringers, Lactated) 1,000 mls @ 100 mls/hr IV ASDIRECTED JOSE LUIS Last Admin: 12/22/19 20:29 Dose: 100 mls/hr Oxytocin/Lactated Ringer's (Pitocin In Lr 10 Units/1,000 Ml) 10 unit in 1,000 mls @ 12 mls/hr IV TITRATE JOSE LUIS; Protocol Last Admin: 12/22/19 20:29 Dose: 2 munits/min, 12 mls/hr Oxytocin/Lactated Ringer's (Pitocin In Lr 10 Units/1,000 Ml) 10 unit in 1,000 mls @ 500 mls/hr IV .CONTINUOUS JOSE LUIS Nalbuphine HCl (Nubain) 10 mg IVPUSH Q2H PRN PRN Reason: Pain Ondansetron HCl (Zofran) 4 mg IVPUSH Q4H PRN PRN Reason: Nausea/Vomiting Sodium Chloride (Saline Flush) 10 ml FLUSH ASDIRECTED PRN PRN Reason: Keep Vein Open Assessment/Plan Comment:: 1. 39-1/7 week intrauterine with admission for elective induction of labor. 2. Group B strep screen negative 3. Patient declined initial STI testing. RPR will be done upon admission along with CBC 4. Patient plans to breast-feed 5. Rubella titer shows immunity. 6. Patient is been immunity start 4 influenza and for her T dap 7. Patient desiring an epidural in labor and delivery for analgesia. Plan: 1. RPR and CBC upon admission 2. Routine labor care 3. IV Pitocin initially made do artificial rupture membranes as time allows and as head descensus. 4. Support breast-feeding decision
[2019-12-23] MEDS: Lactated Ringers 1,000 ML IV SCH ×3 (01:30→08:06)
[2019-12-23] MEDS ORDERED: Bupivacaine/fentaNYL/NS 100 ML Bag EPIDUR PRN (04:59)
[2019-12-23] MEDS ORDERED: ePHEDrine 50 MG/ML SDV IVPUSH PRN (04:59)
[2019-12-23] MEDS ORDERED: fentaNYL 100 MCG/2 ML SDV EPIDUR PRN (04:59)
[2019-12-23] MEDS ORDERED: diphenhydrAMINE 50 MG/ML SDV IVPUSH PRN (04:59)
--- NOTE | 2019-12-23 05:30 | PCM.PREANE ---
Preanesthetic Assessment - Procedure Proposed Procedure: epidural - Anesthesia/Transfusion/Family Hx Anesthesia History: Prior Anesthesia Without Reaction Family History of Anesthesia Reaction: No Transfusion History: No Prior Transfusion(s) Intubation History: Unknown - Review of Systems General: No Symptoms Pulmonary: No Symptoms Cardiovascular: No Symptoms Gastrointestinal: Abdominal Pain (labor) Neurological: No Symptoms Other: Reports: None - Physical Assessment Vital Signs: Last Vital Signs Temp 36.9 C 12/22/19 19:46 Pulse 82 12/22/19 19:46 Resp 16 12/22/19 19:46 BP 106/61 12/22/19 19:46 Pulse Ox 98 12/22/19 19:46 Height: 1.68 m Weight: 80.286 kg ASA Class: 2 Mental Status: Alert & Oriented x3 Airway Class: Mallampati = 1 Dentition: Reports: Normal Dentition Thyro-Mental Finger Breadths: 3 Mouth Opening Finger Breadths: 3 ROM/Head Extension: Full Lungs: Clear to Auscultation, Normal Respiratory Effort Cardiovascular: Regular Rate, Regular Rhythm - Lab Values: Laboratory Last Values WBC 8.31 K/mm3 (3.98-10.04) 12/22/19 20:04 RBC 4.40 M/mm3 (3.98-5.22) 12/22/19 20:04 Hgb 12.3 gm/dl (11.2-15.7) 12/22/19 20:04 Hct 38.3 % (34.1-44.9) 12/22/19 20:04 MCV 87.0 fl (79.4-94.8) 12/22/19 20:04 MCH 28.0 pg (25.6-32.2) 12/22/19 20:04 MCHC 32.1 g/dl (32.2-35.5) L 12/22/19 20:04 RDW Std Deviation 50.1 fL (36.4-46.3) H 12/22/19 20:04 Plt Count 191 K/mm3 (182-369) 12/22/19 20:04 MPV 11.2 fl (9.4-12.3) 12/22/19 20:04 Neut % (Auto) 67.0 % (34.0-71.1) 12/22/19 20:04 Lymph % (Auto) 22.1 % (19.3-51.7) 12/22/19 20:04 [place] % (Auto) 9.3 % (4.7-12.5) 12/22/19 20:04 Eos % (Auto) 0.4 (0.7-5.8) L 12/22/19 20:04 Baso % (Auto) 0.1 % (0.1-1.2) 12/22/19 20:04 Neut # (Auto) 5.57 K/mm3 (1.56-6.13) 12/22/19 20:04 Lymph # (Auto) 1.84 K/mm3 (1.18-3.74) 12/22/19 20:04 [place] # (Auto) 0.77 K/mm3 (0.24-0.36) H 12/22/19 20:04 Eos # (Auto) 0.03 K/mm3 (0.04-0.36) L 12/22/19 20:04 Baso # (Auto) 0.01 K/mm3 (0.01-0.08) 12/22/19 20:04 - Allergies Allergies/Adverse Reactions: Allergies Allergy/AdvReac Type Severity Reaction Status Date / Time No Known Allergies Allergy Verified 12/22/19 19:44 - Anesthesia Plan Pre-Op Medication Ordered: None - Acknowledgements Anesthesia Type Planned: Epidural Pt an Appropriate Candidate for the Planned Anesthesia: Yes Alternatives and Risks of Anesthesia Discussed w Pt/Guardian: Yes Pt/Guardian Understands and Agrees with Anesthesia Plan: Yes PreAnesthesia Questionnaire - Past Health History Medical/Surgical History: Denies Medical/Surgical History 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: 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: - Past Surgical History Head Surgeries/Procedures: Reports: None - SUBSTANCE USE Smoking Status *Q: Never Smoker Second Hand Smoke Exposure: No Recreational Drug Use History: No - HOME MEDS Home Medications: Home Meds Vit 10/Iron/Folic/Dha [Vitafol-OB + DHA] 1 tab PO DAILY 08/28/17 [ History] - CURRENT (IN HOUSE) MEDS Current Meds: Current Medications Acetaminophen (Tylenol) 650 mg PO Q4H PRN PRN Reason: Pain (Mild 1-3) and fever Last Admin: 12/22/19 20:32 Dose: 650 mg Calcium Carbonate/Glycine (Tums) 1,000 mg PO Q2H PRN PRN Reason: Indigestion Diphenhydramine HCl (Benadryl) 25 mg IVPUSH Q6H PRN PRN Reason: Itching Ephedrine Sulfate (Ephedrine Sulfate) 5 mg IVPUSH ASDIRECTED PRN PRN Reason: HYPOTENTSION Fentanyl (Sublimaze) 100 mcg EPIDUR Q3H PRN PRN Reason: Pain Last Admin: 12/23/19 05:16 Dose: 100 mcg Fentanyl/Bupivacaine HCl (Fentanyl/Bupivacaine/Ns 2 Mcg-0.125% 100 Ml) 1 ml EPIDUR CONTINUOUS PRN PRN Reason: Pain Last Admin: 12/23/19 05:17 Dose: 100 ml Lactated Ringer's (Ringers, Lactated) 1,000 mls @ 100 mls/hr IV ASDIRECTED JOSE LUIS Last Admin: 12/23/19 05:14 Dose: 100 mls/hr Oxytocin/Lactated Ringer's (Pitocin In Lr 10 Units/1,000 Ml) 10 unit in 1,000 mls @ 12 mls/hr IV TITRATE JOSE LUIS; Protocol Last Titration: 12/23/19 04:14 Dose: 16 munits/min, 96 mls/hr Oxytocin/Lactated Ringer's (Pitocin In Lr 10 Units/1,000 Ml) 10 unit in 1,000 mls @ 500 mls/hr IV .CONTINUOUS JOSE LUIS Nalbuphine HCl (Nubain) 10 mg IVPUSH Q2H PRN PRN Reason: Pain Ondansetron HCl (Zofran) 4 mg IVPUSH Q4H PRN PRN Reason: Nausea/Vomiting Sodium Chloride (Saline Flush) 10 ml FLUSH ASDIRECTED PRN PRN Reason: Keep Vein Open Discontinued Medications Lidocaine HCl (Xylocaine 1%) 50 ml INJECT ONETIME ONE Stop: 12/22/19 19:46 Last Admin: 12/22/19 22:16 Dose: Not Given
--- NOTE | 2019-12-23 10:23 | PCM.SN ---
- Free Text/Narrative Note: Hafsa Is a 29-year-old 2 para 1001 -[place]arusian female who is admitted for elective induction of labor. She presently is at 39-1/7 weeks gestational age with an SNEHAL of 12/28/2019. The procedure elective induction of labor with Pitocin/artificial rupture membranes is discussed in detail patient. She appears to understand and wishes to proceed. She was induced with Pitocin and on the early a.m. of 12/23/2019 had artificial rupture membranes with resultant clear amniotic fluid. She had an epidural in place for labor analgesia. At 0901 hrs. on 12/23/2019 she delivered a viable, weiner, male in a direct occiput anterior position. The baby weighed 3500 g (7 pounds 11.5 ounces), was 21 inches in length and had Apgars of 9 and 9. The baby was placed on mom's abdomen. Nose and mouth were bulb suctioned. Cord was allowed to pulsate for approximately 2 minutes and then was clamped 2 and cut by the baby's father Alejanrdo. Pitocin effusion rate was increased to 500 mL/h to facilitate increase in uterine tone and decrease likelihood of bleeding. Baby's name is Turner. The patient had a second-degree perineal laceration. This was repaired with 3-0 Monocryl in a routine fashion. Labor analgesia with epidural was used for perineal laceration repair anesthesia. Patient tolerated this repair well. Cord blood was obtained. The umbilical cord had 3 vessels. The placenta delivered in a Wu presentation at 0911 hrs., appeared intact and complete and was discarded per patient desire. Blood loss was 200 mL. Patient plans to breast-feed. Condition: Good.
[2019-12-23] MEDS ORDERED: Benzocaine/Menthol 20%-0.5% Spray 56 GM Canister TOP PRN (13:26)
[2019-12-23] MEDS ORDERED: Acetaminophen 325 MG Tab PO PRN (13:26)
[2019-12-23] MEDS ORDERED: Witch Hazel Medicated Pads 40/Jar TOP PRN (13:26)
[2019-12-23] MEDS: Docusate Sodium 100 MG Cap PO PRN (18:29)
[2019-12-23] MEDS: Ibuprofen 600 MG Tab PO PRN (22:06)
--- NOTE | 2019-12-24 06:20 | PCM.DCSUM1 ---
Discharge Summary - Hospital Course Free Text/Narrative:: Hafsa Is a 29-year-old 2 para 1001 -[place] female who is admitted for elective induction of labor. She presently is at 39-1/7 weeks gestational age with an SNEHAL of 12/28/2019. The procedure elective induction of labor with Pitocin/artificial rupture membranes is discussed in detail patient. She appears to understand and wishes to proceed. She was induced with Pitocin and on the early a.m. of 12/23/2019 had artificial rupture membranes with resultant clear amniotic fluid. She had an epidural in place for labor analgesia. At 0901 hrs. on 12/23/2019 she delivered a viable, weiner, male infant in a direct occiput anterior position. The baby weighed 3500 g (7 pounds 11.5 ounces), was 21 inches in length and had Apgars of 9 and 9. The baby was placed on mom's abdomen. Nose and mouth were bulb suctioned. Cord was allowed to pulsate for approximately 2 minutes and then was clamped 2 and cut by the baby's father Alejandro. Pitocin effusion rate was increased to 500 mL/h to facilitate increase in uterine tone and decrease likelihood of bleeding. Baby's name is Turner. The patient had a second-degree perineal laceration. This was repaired with 3-0 Monocryl in a routine fashion. Labor analgesia with epidural was used for perineal laceration repair anesthesia. Patient tolerated this repair well. Cord blood was obtained. The umbilical cord had 3 vessels. The placenta delivered in a Wu presentation at 0911 hrs., appeared intact and complete and was discarded per patient desire. Blood loss was 200 mL. Patient plans to breast-feed. patient is doing well. She is nursing without problems, ambulating well. She has minimal lochia and is voiding without concerns. The patient is desiring discharge home today. Condition: Good. Diagnosis: Stroke: No - Discharge Data Discharge Date: 12/24/19 Discharge Disposition: Home, Self-Care 01 Condition: Good - Referral to Home Health Primary Care Physician: Moise Hearn MD - Patient Instructions Diet: Regular Diet as Tolerated (Nursing diet with increase in calories and calcium is recommended) Activity: As Tolerated (No intercourse or tampons until bleeding resolves) Driving: May Drive Today Showering/Bathing: May Shower (May take a bath) Notify Provider of: Fever, Increased Pain, Swelling and Redness, Nausea and/or Vomiting - Discharge Plan Home Medications: Home Meds Vit 10/Iron/Folic/Dha [Vitafol-OB + DHA] 1 tab PO DAILY 08/28/17 [ History] Acetaminophen [Tylenol] 650 mg PO Q4H PRN tablet 12/24/19 [Rx] Ibuprofen [Motrin] 600 mg PO Q4H PRN tablet 12/24/19 [Rx] Referrals: Moise Hearn MD [Primary Care Provider] - (Return to clinicDr. Hearn or Buffy cadena, nurse practitioner2 weeks) - Discharge Summary/Plan Comment DC Time >30 min.: No Discharge Summary/Plan Comment: Discharge instructions: 1. Discharge home 2. Diet, activity and follow-up discussed with patient. Recommend nursing diet with increased calories and calcium. 3. Precautions given concern increased pain, bleeding, temperature, signs/ symptoms of DVT/PE. 4. Medications per home medication was printed, discussed with and given to the patient. 5. Return to clinic-Dr. Hearn or [facility] cadena[facility]. Diagnosis: Term -delivered Condition: Good - Patient Data Vitals - Most Recent: Last Vital Signs Temp 36.4 C 12/24/19 04:22 Pulse 71 12/24/19 04:22 Resp 14 12/24/19 04:22 BP 111/72 12/24/19 04:22 Pulse Ox 97 12/24/19 04:22 Weight - Most Recent: 80.286 kg I&O - Last 24 hours: Intake & Output 12/23/19 12/23/19 12/24/19 14:59 22:59 06:59 Intake Total 5710 Balance 5710 Lab Results - Last 24 hrs: Laboratory Results - last 24 hr 12/22/19 Range/Units 20:04 RPR Non-reactive (NONREACTIVE) Med Orders - Current: Current Medications Acetaminophen (Tylenol) 650 mg PO Q4H PRN PRN Reason: mild pain or fever Benzocaine/Menthol (Dermoplast Pain Relief [place]) 0 gm TOP ASDIRECTED PRN PRN Reason: Perineal Comfort Measure Last Admin: 12/23/19 14:02 Dose: 1 canister Docusate Sodium (Colace) 100 mg PO BID PRN PRN Reason: Constipation Last Admin: 12/23/19 18:29 Dose: 100 mg Ibuprofen (Motrin) 600 mg PO Q4H PRN PRN Reason: Mild pain or fever Last Admin: 12/23/19 22:06 Dose: 600 mg Prenat Multivit/Smoking Pipes Cleaner/Iron/Folic Ac ( Plus Iron) 1 each PO DAILY [facility] Tanvi Alonso (Tucks) 1 pad TOP ASDIRECTED PRN PRN Reason: Pain Last Admin: 12/23/19 14:01 Dose: 1 tub Discontinued Medications Acetaminophen (Tylenol) 650 mg PO Q4H PRN PRN Reason: Pain (Mild 1-3) and fever Last Admin: 12/22/19 20:32 Dose: 650 mg Calcium Carbonate/Glycine (Tums) 1,000 mg PO Q2H PRN PRN Reason: Indigestion Diphenhydramine HCl (Benadryl) 25 mg IVPUSH Q6H PRN PRN Reason: Itching Ephedrine Sulfate (Ephedrine Sulfate) 5 mg IVPUSH ASDIRECTED PRN PRN Reason: HYPOTENTSION Fentanyl (Sublimaze) 100 mcg EPIDUR Q3H PRN PRN Reason: Pain Last Admin: 12/23/19 05:16 Dose: 100 mcg Fentanyl/Bupivacaine HCl (Fentanyl/Bupivacaine/Ns 2 Mcg-0.125% 100 Ml) 1 ml EPIDUR CONTINUOUS PRN PRN Reason: Pain Last Admin: 12/23/19 05:17 Dose: 100 ml Lactated Ringer's (Ringers, Lactated) 1,000 mls @ 100 mls/hr IV ASDIRECTED JOSE LUIS Last Admin: 12/23/19 08:06 Dose: 100 mls/hr Oxytocin/Lactated Ringer's (Pitocin In Lr 10 Units/1,000 Ml) 10 unit in 1,000 mls @ 12 mls/hr IV TITRATE JOSE LUIS; Protocol Last Titration: 12/23/19 07:00 Dose: 20 munits/min, 120 mls/hr Oxytocin/Lactated Ringer's (Pitocin In Lr 10 Units/1,000 Ml) 10 unit in 1,000 mls @ 500 mls/hr IV .CONTINUOUS JOSE LUIS Last Admin: 12/23/19 09:15 Dose: 500 mls/hr Lidocaine HCl (Xylocaine 1%) 50 ml INJECT ONETIME ONE Stop: 12/22/19 19:46 Last Admin: 12/22/19 22:16 Dose: Not Given Nalbuphine HCl (Nubain) 10 mg IVPUSH Q2H PRN PRN Reason: Pain Ondansetron HCl (Zofran) 4 mg IVPUSH Q4H PRN PRN Reason: Nausea/Vomiting Sodium Chloride (Saline Flush) 10 ml FLUSH ASDIRECTED PRN PRN Reason: Keep Vein Open
--- NOTE | 2019-12-24 06:27 | PCM48HPAN ---
Post Anesthesia Note - EVALUATION WITHIN 48HRS OF ANESTHETIC Vital Signs in Normal Range: Yes Patient Participated in Evaluation: Yes Respiratory Function Stable: Yes Airway Patent: Yes Cardiovascular Function Stable: Yes Hydration Status Stable: Yes Pain Control Satisfactory: Yes Nausea and Vomiting Control Satisfactory: Yes Mental Status Recovered: Yes Vital Signs: Last Vital Signs Temp 36.4 C 12/24/19 04:22 Pulse 71 12/24/19 04:22 Resp 14 12/24/19 04:22 BP 111/72 12/24/19 04:22 Pulse Ox 97 12/24/19 04:22 - COMMENTS/OBSERVATIONS Free Text/Narrative:: no anesthesia complications noted
[2019-12-24] MEDS ORDERED: Prenatal Multivitamin with Calcium/Folic Acid/Iron Tab PO SCH (09:00)
[2019-12-24] MEDS: Docusate Sodium 100 MG Cap PO PRN (09:43)
[2019-12-24] MEDS: Ibuprofen 600 MG Tab PO PRN (12:42)
[2019-12-24 16:38] VITALS: BP 99/60; PULSE 78
== END 2019-12-24 18:10 | disposition home or self-care (01) | DRG 560 ==
LOC: JD.OB 09:01 → OBSVTOIN 12-23 09:01 → JD.OB 12-23 09:02
PROVIDERS: ADMIT Obstetrics & Gynecology; ATTEND Obstetrics & Gynecology
PROC: 10E0XZZ Delivery of Products of Conception, External Approach (ICD-10-PCS; principal; 2019-12-23)
PROC: 3E033VJ Introduction of Other Hormone into Peripheral Vein, Percutaneous Approach (ICD-10-PCS; 2019-12-23)
PROC: 10907ZC Drainage of Amniotic Fluid, Therapeutic from Products of Conception, Via Natural or Artificial Opening (ICD-10-PCS; 2019-12-23)
PROC: 0KQM0ZZ Repair Perineum Muscle, Open Approach (ICD-10-PCS; 2019-12-23)
PROC: 3E0R3BZ Introduction of Anesthetic Agent into Spinal Canal, Percutaneous Approach (ICD-10-PCS; 2019-12-23)
DX: O70.1 Second degree perineal laceration during delivery (principal); Z3A.39 39 weeks gestation of pregnancy; Z37.0 Single live birth
CPT/HCPCS: 01967; 36415; 51702; 59025; 59409; 85025; 86592; A9270-GY; J2590; J3010; J3490; J7120

== ENCOUNTER 2021-03-03 01:27 | Emergency (ER) | payer BC ==
[2021-03-03 02:08] VITALS: BP 119/67; PULSE 86
--- NOTE | 2021-03-03 02:11 | EDM.PDOC ---
ED HPI GENERAL MEDICAL PROBLEM - General Chief Complaint: Gastrointestinal Problem Stated Complaint: SOB Time Seen by Provider: 03/03/21 01:37 Source of Information: Reports: Patient History Limitations: Reports: No Limitations - History of Present Illness INITIAL COMMENTS - FREE TEXT/NARRATIVE: Mrs. Siddiqui is a very pleasant 30-year-old woman who now presents the ED stating that she suffers from recurrent constipation, particularly when she is , and she states that she is currently 6 weeks gestation with her third . She states that her last bowel movement was 2 days ago, on 02/28/2021, and that it was associated with bright red bleeding. She states that she has continued to have bright red bleeding since. No significant pain. No recent fever, nausea, or vomiting. No associated urinary symptoms. The patient acknowledges that she has had similar symptoms numerous times in the past, presumably due to hemorrhoids. The patient states that she has been using an [id number] cream and wipe, whose name she does not recall. Here in the ED, the patient is found to be hemodynamically stable, afebrile, saturating 100% on room air. Other than the rectal bleeding issue, the patient denies having a recent fever, chills, sore throat, ear pain, nasal or sinus congestion, cough, dyspnea, chest pain, palpitations, nausea, vomiting, diarrhea, abdominal pain, urinary symptoms, recent weight gain or weight loss, recent black bowel movements, recent joint aches, headaches, or rashes. The patient does not have a PCP. Her SOFTWARE RELEASE ENGINEER is Dr. Moise Hearn. Rectal Pain Score (Numeric/FACES): 8 - Related Data Allergies Allergy/AdvReac Type Severity Reaction Status Date / Time No Known Allergies Allergy Verified 03/03/21 01:34 Home Meds: Home Meds Vit 10/Iron/Folic/Dha [Vitafol-OB + DHA] 1 tab PO DAILY 08/28/17 [History] Acetaminophen [Tylenol] 650 mg PO Q4H PRN tablet 12/24/19 [Rx] Past Medical History - Past Health History Medical/Surgical History: Denies Medical/Surgical History : 3 Para: 2 Social & Family History - Tobacco Use Tobacco Use Status *Q: Never Tobacco User Second Hand Smoke Exposure: No - Caffeine Use Caffeine Use: Reports: None - Alcohol Use Alcohol Use History: No - Recreational Drug Use Recreational Drug Use: No - Living Situation & Occupation Living situation: Reports: , with Spouse, with Family (2 kids) Occupation: Unemployed ED ROS GENERAL - Review of Systems Review Of Systems: Comprehensive ROS is negative, except as noted in HPI. ED EXAM, GI/ABD - Physical Exam Exam: See Below Exam Limited By: No Limitations General Appearance: Alert, WD/WN, No Apparent Distress Eyes: Bilateral: Normal Appearance, EOMI Ears: Normal External Exam, Hearing Grossly Normal Nose: Normal Inspection Throat/Mouth: Normal Inspection, Normal Lips, Normal Voice, No Airway Compromise Head: Atraumatic, Normocephalic Neck: Normal Inspection, Full Range of Motion Respiratory/Chest: No Respiratory Distress, Lungs Clear, Normal Breath Sounds, No Accessory Muscle Use Cardiovascular: Normal Peripheral Pulses, Regular Rate, Rhythm, No Edema, No Gallop, No JVD, No Murmur, No Rub GI/Abdominal Exam: Normal Bowel Sounds, Soft, Non-Tender, No Organomegaly, No Distention, No Abnormal Bruit, No Mass Rectal (Female) Exam: Normal Rectal Tone, Hemorrhoids (one small non- thrombosed), Other (Small blood clot at anus). No: Perirectal Abscess, Tenderness Back Exam: Normal Inspection, Full Range of Motion, NT Extremities: Normal Inspection, Normal Range of Motion, No Pedal Edema, Normal Capillary Refill Neurological: Alert, Oriented, Normal Cognition, No Motor/Sensory Deficits Psychiatric: Normal Affect Skin Exam: Warm, Dry, Intact, Normal Color, No Rash Course - Vital Signs Last Recorded V/S: Last Vital Signs Temp 35.6 C L 03/03/21 01:41 Pulse 86 03/03/21 01:41 Resp 16 03/03/21 01:41 BP 119/67 03/03/21 01:41 Pulse Ox 100 03/03/21 01:41 - Re-Assessments/Exams Free Text/Narrative Re-Assessment/Exam: 03/03/21 02:05 As above, the patient suffers from recurrent constipation, particularly when , with her last bowel movement this past Wednesday, associated with some bright red blood, with rectal bleeding since. On examination, she has a very small non-thrombosed hemorrhoid with a small blood clot being found at the anus. It is possible that the hemorrhoid was thrombosed, and spontaneously drained the blood clot, however, I suspect that she simply has mild hemorrhoids associated with chronic/recurrent constipation. Going forward, I am recommending that she add Metamucil to her diet on a daily basis. I would like her to follow-up with Dr. Hearn. If Dr. Hearn feels that a colonoscopy is necessary, he can make those arrangements. Departure - Departure Time of Disposition: 02:07 Disposition: Home, Self-Care 01 Condition: Good Clinical Impression: External hemorrhoid, bleeding, Constipation, - Discharge Information *PRESCRIPTION DRUG MONITORING PROGRAM REVIEWED*: Not Applicable *COPY OF PRESCRIPTION DRUG MONITORING REPORT IN PATIENT MAGDY: Not Applicable Referrals: Moise Hearn MD [Primary Care Provider] - Additional Instructions: You were seen in the emergency room after developing bright red blood with a bowel movement, associated with constipation. On examination, a small hemorrhoid was found, which is likely the source of the bleeding. Hemorrhoids are commonly caused by constipation. We recommend that you dissolve 1 teaspoon of Metamucil in a tall glass of water, and drink it each day, to help with your constipation. We recommend that you follow-up with your SOFTWARE RELEASE ENGINEER, Dr. Moise Hearn, at the next available appointment. If any other problems, please do not hesitate to return to the ER. Sepsis Event Note (ED) - Evaluation Sepsis Screening Result: No Definite Risk - Focused Exam Vital Signs: Vital Signs Temp Pulse Resp BP Pulse Ox 03/03/21 01:41 35.6 C L 86 16 119/67 100
== END 2021-03-03 02:22 | disposition home or self-care (01) ==
LOC: JD.ED 01:27
DX: O22.41 Hemorrhoids in pregnancy, first trimester (principal); O99.611 Diseases of the digestive system complicating pregnancy, first trimester; K59.00 Constipation, unspecified; Z3A.01 Less than 8 weeks gestation of pregnancy
CPT/HCPCS: 99283

== ENCOUNTER 2021-11-01 07:30 | Inpatient (IN) | payer BC ==
[2021-11-01] MEDS ORDERED: Calcium Carbonate 500 MG Tab.Chew PO PRN (07:52)
[2021-11-01] MEDS ORDERED: Ondansetron 4 MG/2 ML SDV IVPUSH PRN (07:52)
[2021-11-01] MEDS ORDERED: Nalbuphine 10 MG/1 ML Vial IVPUSH PRN (07:52)
[2021-11-01] MEDS ORDERED: Sodium Chloride 0.9% 10 ML Syringe FLUSH PRN (07:52)
[2021-11-01] MEDS ORDERED: Lactated Ringers 1,000 ML IV SCH (08:00)
[2021-11-01] MEDS ORDERED: Oxytocin/Lactated Ringers 10 UNIT/1,000 ML BAG IV SCH ×2 (08:00)
[2021-11-01] MEDS ORDERED: FLU Vacc QS2021-22 36MOS UP/PF 60 MCG/0.5 ML Syringe IM ONE (09:30)
[2021-11-01] MEDS ORDERED: fentaNYL 100 MCG/2 ML SDV EPIDUR PRN (11:49)
[2021-11-01] MEDS ORDERED: ePHEDrine 50 MG/ML SDV IVPUSH PRN (11:49)
[2021-11-01] MEDS ORDERED: Bupivacaine/fentaNYL/NS 100 ML Bag EPIDUR PRN (11:49)
[2021-11-01] MEDS ORDERED: diphenhydrAMINE 50 MG/ML SDV IVPUSH PRN (11:49)
[2021-11-01] MEDS ORDERED: Lidocaine 1.5% with EPINEPHrine 1:200,000 5 ML Amp ONE (12:00)
--- NOTE | 2021-11-01 13:12 | PCM.LDHP ---
L&D History of Present Illness - General Date of Service: 11/01/21 Admit Problem/Dx: Patient Status Order with Admit Dx/Problem 11/01/21 07:52 Patient Status [ADT] Routine Admission Diagnosis/Problem Admission Diagnosis/Problem 11/01/21 13:01 Hafsa is a 30-year-old 3 para 2-0-0-2 female admitted on 11/01/2021 at 41-0/7 weeks gestational age with an SNEHAL of 10/25/2021 for medical induction of labor. Source of Information: Patient History Limitations: Reports: No Limitations - History of Present Illness Introduction:: Hafsa is a 30-year-old 3 para 2-0-0-2 female admitted on 11/01/2021 at 41-0/7 weeks gestational age with an SNEHAL of 10/25/2021 for medical induction of labor. The procedure, risks and benefits, alternatives of care including allowing for natural onset of labor and initiation of testing are all discussed with the patient. She appears understand, wishes to proceed and is given verbal consent. IMAGING SPECIALIST history: Hafsa is a 3 para 2-0-0-2. The patient had menstrual onset at 10 years of age. Cycles are regular. Last menstrual period however is not certain. Her SNEHAL of 10/25/2021 as determined by an ultrasound done on 03/26/2021 at 7-2/7 weeks gestational age. It is supported by the second ultrasound done 20-6/7 weeks. Her previous obstetric history includes the followin. Male born 08/29/2018 at 40-6/7 weeks gestational age3 hours of labor9 pounds 4 ouncesNSVDepidural used for labor analgesia. Child's name is J Carlos Taylor. 2. Male born 12/23/2020 at 39-2/7 weeks gestational age. weight 7 pounds 11 ounces. . Epidural used for labor analgesia. Second-degree laceration with repair. Child's name is or Turner. Patient denies any STIs, abnormal Pap smears. She denies any control at the time of conception and this is a desired . history: Patient was seen early in the at approximately 7 weeks and 2 days. She was seen on a regular basis throughout the . Weight gain was from 162.2 pounds to 185 pounds for approximately a 23 pound increase. Fundal height growth has been appropriate. Vital signs remained stable throughout the course. She desires epidural in labor. Group B strep screen is negative. She plans to breast-feed. Prequel noninvasive screen was negative for trisomy 21, 18 and 13. Gender identification consistent with female. Tdap given on 09/10/2021. She is rubella immune. Risk factors for the include history of macrosomic infant and gestational age of 41 and 07 weeks. laboratory testing: Blood is be positive with a negative antibody screen. Hemoglobin is 12.5 g/dL. Platelets are 270,000 on first floyd visit. Pap smear was negative. HPV assay was negative. Rubella titer shows immunity. RPR is nonreactive. Urine culture showed Gardnerella vaginalisthis was treated with metronidazole. Chlamydia and gonorrhea assays were both negative. Second trimester hemoglobin was 12.3 g/dL and platelets were 220,000. Her 1 hour GTT was normal at 83. Group B strep screen was negative and RPR done 07/14/2021 was nonreactive. Allergies: None Medications: 1. vitamins Past medical history: 1. x2 Past surgical history: Unremarkable Family history: Patient has 1 sister alive and well. Mother and father were killed in a war. Maternal aunt is alive, history of breast cancer at age 50. Rest of family history is unknown. Social history: Patient is . She lives in [place], [place]. is Alejandro Pineda. She does not use any significance alcohol, drugs or tobacco. Review of systems: Review of systems: In general patient has no complaints. Baby has been active. No significant contractions have been noted. No leakage of fluid or vaginal bleeding noted. Skin: Negative Lungs: No infectious symptoms or shortness of breath Cardiovascular: No chest pain or exercise intolerance Breasts: Changes secondary to . No lumps, changes in size, pain, dimpling, discharge or axillary or supraclavicular concerns. GI: Negative : Body habitus changes secondary to . Musculoskeletal: Negative Neurological: Negative Physical exam: In general the patient is well-developed, well-nourished, pleasant female of stated age in no acute distress. Skin is warm dry without lesions. HEENT, neck and back within normal limits. Lungs are clear with good breath sounds in all lung ramos. Breast exam deferred at this time. Patient does plan to breast-feed. Cardiovascular exam shows regular and rhythm without murmurs. Abdomen is gravid with fundal height at 41 cm. Baby in vertex presentation. Genital per digital evaluation shows cervix to be 2+ centimeters, soft, 5% effaced, mid position, -2.. Extremities and neurological exam are grossly within normal limits. - Related Data Allergies/Adverse Reactions: Allergies Allergy/AdvReac Type Severity Reaction Status Date / Time No Known Allergies Allergy Verified 11/01/21 07:52 Home Medications: Home Meds Vit 10/Iron/Folic/Dha [Vitafol-OB + DHA] 1 tab PO DAILY 08/28/17 [History] Acetaminophen [Tylenol] 650 mg PO Q4H PRN tablet 12/24/19 [Rx] Past Medical History - Past Health History Medical/Surgical History: Denies Medical/Surgical History 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: Reports: GERD, Other (See Below) Other 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: Constipation with IMAGING SPECIALIST History: Reports: - Past Surgical History Head Surgeries/Procedures: Reports: None Social & Family History - Family History Family Medical History: No Pertinent Family History - Tobacco Use Tobacco Use Status *Q: Never Tobacco User Second Hand Smoke Exposure: No - Caffeine Use Caffeine Use: Reports: None - Recreational Drug Use Recreational Drug Use: No - Living Situation & Occupation Living situation: Reports: , with Spouse, with Family (2 kids) Occupation: Unemployed H&P Review of Systems - Review of Systems: Review Of Systems: See Below L&D Exam - Exam Exam: See Below - Vital Signs Vital Signs: Last Vital Signs Temp 36.6 C 11/01/21 07:52 Pulse 87 11/01/21 07:52 Resp 16 11/01/21 07:52 BP 104/53 L 11/01/21 07:52 Pulse Ox 97 11/01/21 07:52 Weight: 83.461 kg - Patient Data Lab Results Last 24 hrs: Laboratory Results - last 24 hr 11/01/21 11/01/21 11/01/21 Range/Units 08:15 08:15 08:25 WBC 8.92 (3.98-10.04) K/mm3 RBC 4.30 (3.98-5.22) M/mm3 Hgb 11.5 (11.2-15.7) gm/dl Hct 36.2 (34.1-44.9) % MCV 84.2 (79.4-94.8) fl MCH 26.7 (25.6-32.2) pg MCHC 31.8 L (32.2-35.5) g/dl RDW Std Deviation 46.4 H (36.4-46.3) fL Plt Count 202 (182-369) K/mm3 MPV 11.3 (9.4-12.3) fl Neut % (Auto) 69.6 (34.0-71.1) % Lymph % (Auto) 21.1 (19.3-51.7) % [place] % (Auto) 8.1 (4.7-12.5) % Eos % (Auto) 0.3 L (0.7-5.8) Baso % (Auto) 0.1 (0.1-1.2) % Neut # (Auto) 6.21 H (1.56-6.13) K/mm3 Lymph # (Auto) 1.88 (1.18-3.74) K/mm3 [place] # (Auto) 0.72 H (0.24-0.36) K/mm3 Eos # (Auto) 0.03 L (0.04-0.36) K/mm3 Baso # (Auto) 0.01 (0.01-0.08) K/mm3 SARS-CoV-2 RNA (ZOILA) Negative (NEGATIVE) Blood Type B POSITIVE Gel Antibody Screen Negative Result Diagrams: 11/01/21 08:15 - Problem List (1) 41 weeks gestation of SNOMED Code(s): 60977086 ICD Code: Z3A.41 - 41 WEEKS GESTATION OF Status: Acute Current Visit: Yes (2) History of macrosomia in in prior , currently SNOMED Code(s): 11730309745239, 75313917350722 ICD Code: O09.299 - SUPRVSN OF PREG W POOR REPRODCTV OR OBSTET HISTORY, UNSP TRI Status: Acute Current Visit: Yes Problem List Initiated/Reviewed/Updated: Yes Orders Last 24hrs: Active Orders 24 hr Category Date Time Status Patient Status [ADT] Routine ADT 11/01/21 07:52 Active Activity as Tolerated [RC] PFP Care 11/01/21 07:52 Active Communication Order [RC] ASDIRECTED Care 11/01/21 07:52 Active Heart Tones [RC] ASDIRECTED Care 11/01/21 07:53 Active Non Stress Test [RC] PER UNIT ROUTINE Care 11/01/21 07:52 Active Notify Provider [RC] ASDIRECTED Care 11/01/21 11:49 Active Notify Provider [RC] PFP Care 11/01/21 07:52 Active Notify Provider [RC] PRN Care 11/01/21 07:52 Active Peripheral IV Care [RC] . DIRECTED Care 11/01/21 07:53 Active Pump Management, Intrathecal [RC] ASDIRECTED Care 11/01/21 07:53 Active Vaccine to be Administered/Admin Charge [RC] ASDIRECTED Care 11/01/21 09:24 Active Vital Signs [RC] PER UNIT ROUTINE Care 11/01/21 07:52 Active Regular Diet [DIET] Diet 11/01/21 Breakfast Active RAPID PLASMA REAGIN,RPR [CHEM] Routine Lab 11/01/21 08:15 Received Bupivacaine/fentaNYL/NS [fentaNYL/Bupivacaine/NS 2 MCG- Med 11/01/21 11:49 Active 0.125% 100 ML] 100 ml EPIDUR ASDIRECTED PRN Calcium Carbonate [Tums] Med 11/01/21 07:52 Active 1,000 mg PO Q2H PRN Lactated Ringers [Ringers, Lactated] 1,000 ml Med 11/01/21 08:00 Active IV ASDIRECTED Nalbuphine [Nubain] Med 11/01/21 07:52 Active 10 mg IVPUSH Q2H PRN Ondansetron [Zofran] Med 11/01/21 07:52 Active 4 mg IVPUSH Q4H PRN Oxytocin/Lactated Ringers [Pitocin in LR 10 Units/1,000 Med 11/01/21 08:00 Active ML] 10 unit in 1,000 ml IV .CONTINUOUS Oxytocin/Lactated Ringers [Pitocin in LR 10 Units/1,000 Med 11/01/21 08:00 Active ML] 10 unit in 1,000 ml IV TITRATE Sodium Chloride 0.9% [Saline Flush] Med 11/01/21 07:52 Active 10 ml FLUSH ASDIRECTED PRN diphenhydrAMINE [Benadryl] Med 11/01/21 11:49 Active 25 mg IVPUSH Q6H PRN ePHEDrine [ePHEDrine sulfate] Med 11/01/21 11:49 Active 5 mg IVPUSH ASDIRECTED PRN fentaNYL [Sublimaze] Med 11/01/21 11:49 Active 100 mcg EPIDUR Q3H PRN Electronic Heart Tones Ext w TOCO [WOMSER] Oth 11/01/21 07:52 Ordered Routine Electronic Heart Tones Internal [WOMSER] Per Unit Oth 11/01/21 07:52 Ordered Routine Peripheral IV Insertion Adult [OM.PC] Routine Oth 11/01/21 07:52 Ordered Resuscitation Status Routine Resus Stat 11/01/21 07:52 Ordered Medication Orders Calcium Carbonate/Glycine (Calcium Carbonate 500 Mg Tab.Chew) 1,000 mg PO Q2H PRN PRN Reason: Indigestion Diphenhydramine HCl (Diphenhydramine 50 Mg/Ml Sdv) 25 mg IVPUSH Q6H PRN PRN Reason: pruritis Ephedrine Sulfate (Ephedrine 50 Mg/Ml Sdv) 5 mg IVPUSH ASDIRECTED PRN PRN Reason: Hypotension Fentanyl (Fentanyl 100 Mcg/2 Ml Sdv) 100 mcg EPIDUR Q3H PRN PRN Reason: Pain Fentanyl/Bupivacaine HCl (Bupivacaine/Fentanyl/Ns 100 Ml Bag) 100 ml EPIDUR ASDIRECTED PRN PRN Reason: Pain Oxytocin/Lactated Ringer's (Pitocin In Lr 10 Units/1,000 Ml) 10 unit in 1,000 mls @ 12 mls/hr IV TITRATE JOSE LUIS; Protocol Last Titration: 11/01/21 12:40 Dose: 8 munits/min, 48 mls/hr Documented by: Titration: 11/01/21 11:45 Dose: 6 munits/min, 36 mls/hr Documented by: Titration: 11/01/21 10:00 Dose: 4 munits/min, 24 mls/hr Documented by: Admin: 11/01/21 08:58 Dose: 2 munits/min, 12 mls/hr Documented by: LISE Oxytocin/Lactated Ringer's (Pitocin In Lr 10 Units/1,000 Ml) 10 unit in 1,000 mls @ 500 mls/hr IV .CONTINUOUS JOSE LUIS Lactated Ringer's (Ringers, Lactated) 1,000 mls @ 100 mls/hr IV ASDIRECTED JOSE LUIS Last Admin: 11/01/21 08:58 Dose: 100 mls/hr Documented by: LISE Nalbuphine HCl (Nalbuphine 10 Mg/1 Ml Vial) 10 mg IVPUSH Q2H PRN PRN Reason: Pain Ondansetron HCl (Ondansetron 4 Mg/2 Ml Sdv) 4 mg IVPUSH Q4H PRN PRN Reason: Nausea/Vomiting Sodium Chloride (Sodium Chloride 0.9% 10 Ml Syringe) 10 ml FLUSH ASDIRECTED PRN PRN Reason: Keep Vein Open Assessment/Plan Comment:: 1. Hafsa is a 30-year-old 3 para 2-0-0-2 female at 41 and 07 weeks gestational age with an SNEHAL of 10/25/2021 who was admitted for medical induction of labor. 2. Risk factors for the include history of macrosomia with delivery of 9 pound 4 ounce baby previously 3. Patient plans to breast-feed 4. Prequel noninvasive screen negative for 2020, and . Gender identification consistent with female. 5. Patient is okay with epidural for labor analgesia 6. Tdap given on 09/10/2021. 7. Patient is Rh+. Plan: 1. Pitocin induction of labor followed by AROM when possible. 2. Epidural as needed for pain in labor 3. Support breast-feeding decision 4. Admission labs to include COVID-19, CBC for platelet count.
--- NOTE | 2021-11-01 16:11 | PCM.PREANE ---
Preanesthetic Assessment - Procedure Proposed Procedure: Continuous labor epidural - Anesthesia/Transfusion/Family Hx Anesthesia History: Prior Anesthesia Without Reaction Transfusion History: No Prior Transfusion(s) Intubation History: Unknown - Review of Systems General: No Symptoms Pulmonary: No Symptoms Cardiovascular: No Symptoms Gastrointestinal: No Symptoms Neurological: No Symptoms Other: Reports: None - Physical Assessment Vital Signs: Last Vital Signs Temp 97.9 F 11/01/21 07:52 Pulse 87 11/01/21 07:52 Resp 16 11/01/21 07:52 BP 104/53 L 11/01/21 07:52 Pulse Ox 97 11/01/21 07:52 Height: 1.68 m Weight: 83.461 kg ASA Class: 2 Mental Status: Alert & Oriented x3 Airway Class: Mallampati = 1 Dentition: Reports: Normal Dentition Thyro-Mental Finger Breadths: 3 Mouth Opening Finger Breadths: 3 ROM/Head Extension: Full Lungs: Clear to Auscultation, Normal Respiratory Effort Cardiovascular: Regular Rate, Regular Rhythm - Lab Values: Laboratory Last Values WBC 8.92 K/mm3 (3.98-10.04) 11/01/21 08:15 RBC 4.30 M/mm3 (3.98-5.22) 11/01/21 08:15 Hgb 11.5 gm/dl (11.2-15.7) 11/01/21 08:15 Hct 36.2 % (34.1-44.9) 11/01/21 08:15 MCV 84.2 fl (79.4-94.8) 11/01/21 08:15 MCH 26.7 pg (25.6-32.2) 11/01/21 08:15 MCHC 31.8 g/dl (32.2-35.5) L 11/01/21 08:15 RDW Std Deviation 46.4 fL (36.4-46.3) H 11/01/21 08:15 Plt Count 202 K/mm3 (182-369) 11/01/21 08:15 MPV 11.3 fl (9.4-12.3) 11/01/21 08:15 Neut % (Auto) 69.6 % (34.0-71.1) 11/01/21 08:15 Lymph % (Auto) 21.1 % (19.3-51.7) 11/01/21 08:15 [place] % (Auto) 8.1 % (4.7-12.5) 11/01/21 08:15 Eos % (Auto) 0.3 (0.7-5.8) L 11/01/21 08:15 Baso % (Auto) 0.1 % (0.1-1.2) 11/01/21 08:15 Neut # (Auto) 6.21 K/mm3 (1.56-6.13) H 11/01/21 08:15 Lymph # (Auto) 1.88 K/mm3 (1.18-3.74) 11/01/21 08:15 [place] # (Auto) 0.72 K/mm3 (0.24-0.36) H 11/01/21 08:15 Eos # (Auto) 0.03 K/mm3 (0.04-0.36) L 11/01/21 08:15 Baso # (Auto) 0.01 K/mm3 (0.01-0.08) 11/01/21 08:15 SARS-CoV-2 RNA (ZOILA) Negative (NEGATIVE) 11/01/21 08:25 Blood Type B POSITIVE 11/01/21 08:15 Gel Antibody Screen Negative 11/01/21 08:15 - Allergies Allergies/Adverse Reactions: Allergies Allergy/AdvReac Type Severity Reaction Status Date / Time No Known Allergies Allergy Verified 11/01/21 07:52 - Acknowledgements Anesthesia Type Planned: Epidural Pt an Appropriate Candidate for the Planned Anesthesia: Yes Alternatives and Risks of Anesthesia Discussed w Pt/Guardian: Yes Pt/Guardian Understands and Agrees with Anesthesia Plan: Yes PreAnesthesia Questionnaire - Past Health History Medical/Surgical History: Denies Medical/Surgical History 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: Reports: GERD, Other (See Below) Other 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: Constipation with EXECUTIVE SOUS CHEF History: Reports: - Past Surgical History Head Surgeries/Procedures: Reports: None - SUBSTANCE USE Tobacco Use Status *Q: Never Tobacco User Second Hand Smoke Exposure: No Recreational Drug Use History: No - HOME MEDS Home Medications: Home Meds Vit 10/Iron/Folic/Dha [Vitafol-OB + DHA] 1 tab PO DAILY 08/28/17 [History] Acetaminophen [Tylenol] 650 mg PO Q4H PRN tablet 12/24/19 [Rx] - CURRENT (IN HOUSE) MEDS Current Meds: Current Medications Calcium Carbonate/Glycine (Calcium Carbonate 500 Mg Tab.Chew) 1,000 mg PO Q2H PRN PRN Reason: Indigestion Diphenhydramine HCl (Diphenhydramine 50 Mg/Ml Sdv) 25 mg IVPUSH Q6H PRN PRN Reason: pruritis Ephedrine Sulfate (Ephedrine 50 Mg/Ml Sdv) 5 mg IVPUSH ASDIRECTED PRN PRN Reason: Hypotension Fentanyl (Fentanyl 100 Mcg/2 Ml Sdv) 100 mcg EPIDUR Q3H PRN PRN Reason: Pain Last Admin: 11/01/21 15:27 Dose: 100 mcg Documented by: Fentanyl/Bupivacaine HCl (Bupivacaine/Fentanyl/Ns 100 Ml Bag) 100 ml EPIDUR ASDIRECTED PRN PRN Reason: Pain Last Admin: 11/01/21 15:27 Dose: 100 ml Documented by: Oxytocin/Lactated Ringer's (Pitocin In Lr 10 Units/1,000 Ml) 10 unit in 1,000 mls @ 12 mls/hr IV TITRATE JOSE LUIS; Protocol Last Titration: 11/01/21 12:40 Dose: 8 munits/min, 48 mls/hr Documented by: Oxytocin/Lactated Ringer's (Pitocin In Lr 10 Units/1,000 Ml) 10 unit in 1,000 mls @ 500 mls/hr IV .CONTINUOUS JOSE LUIS Lactated Ringer's (Ringers, Lactated) 1,000 mls @ 100 mls/hr IV ASDIRECTED JOSE LUIS Last Infusion: 11/01/21 14:45 Dose: 999 mls/hr Documented by: Nalbuphine HCl (Nalbuphine 10 Mg/1 Ml Vial) 10 mg IVPUSH Q2H PRN PRN Reason: Pain Last Admin: 11/01/21 14:53 Dose: 10 mg Documented by: Ondansetron HCl (Ondansetron 4 Mg/2 Ml Sdv) 4 mg IVPUSH Q4H PRN PRN Reason: Nausea/Vomiting Sodium Chloride (Sodium Chloride 0.9% 10 Ml Syringe) 10 ml FLUSH ASDIRECTED PRN PRN Reason: Keep Vein Open Discontinued Medications Influenza Virus Vaccine (Pharmacy To Dose - Influenza Vaccine) 1 each IM ONETIM E ONE Stop: 11/02/21 09:25 Influenza Virus Vaccine (Flu Vacc [id number] 36mos Up/Pf 60 Mcg/0.5 Ml Syringe) 60 mcg IM .ONCE ONE Stop: 11/01/21 09:31
--- NOTE | 2021-11-01 17:34 | PCM.SN.2 ---
- Free Text/Narrative Note: Delivery note: Stage I: Hafsa is a 30-year-old 3 para 2-0-0-2 female admitted on 11/01/2021 at 41-0/7 weeks gestational age with an SNEHAL of 10/25/2021 for medical induction of labor due to gestational age. Underwent Pitocin induction of labor initially followed by AROM with resultant mild meconium stained amniotic fluid. heart tones generally were good throughout the course of the labor. At 6 cm she had an epidural placed for labor analgesia with good results. She pr ogressed slowly to approximately 6 cm and then from 7 cm to complete she progressed rapidly. Stage II: Patient precipitously delivered at 1655 hrs. on 11/01/2021 without physician attendance in the delivery room. Nose and mouth were bulb suction. Pitocin was increased to 500 cc/h to facilitate increase in uterine tone. This to help decrease likelihood of bleeding. Cord was clamped x2 and cut by the baby's father. Umbilical cord had 3 vessels. Cord blood was obtained. Patient was noted to have a small second-degree perineal laceration which was repaired using 3-0 Monocryl suture. Epidural analgesia was used for perineal anesthesia with good results. The baby weighed 3860 g (8 pounds 8.2 ounces) had Apgars of 6, 7 and 8 at 1, 5 and 10 minutes. Stage III: The placenta delivered at 1705 hrs. in a Carnes presentation. It appeared intact and complete and was discarded per patient desire. It did appear somewhat green-johnston secondary to the meconium stained amniotic fluid. Estimated blood loss was 200 cc. Epidural catheter was removed without problems. Patient plans to breast-feed. Condition: Good.
[2021-11-01] MEDS ORDERED: Acetaminophen 325 MG Tab PO PRN (19:52)
[2021-11-01] MEDS ORDERED: Benzocaine/Menthol 20%-0.5% Spray 78 GM Cannister TOP PRN (19:52)
[2021-11-01] MEDS: Witch Hazel Medicated Pads 40/Jar TOP PRN (20:58)
[2021-11-01] MEDS: Docusate Sodium 100 MG Cap PO PRN (20:59)
[2021-11-01] MEDS: Ibuprofen 600 MG Tab PO PRN (20:59)
[2021-11-02] MEDS: Ibuprofen 600 MG Tab PO PRN ×4 (01:52→19:57)
--- NOTE | 2021-11-02 04:49 | PCM.SN.2 ---
- Free Text/Narrative Note: note: Patient is doing well in the period. Minimal lochia, voiding well, ambulated without problems. Nursing without concerns. Patient is afebrile, vital signs are stable Abdomen is flat, soft, uterus is below the umbilicus and is firm and nontender. Legs are nontender. Assessment: recovery going well. Plan: Routine care. Patient be discharged home within the next 24-48 hours.
[2021-11-02] MEDS: Prenatal Multivitamin with Calcium/Folic Acid/Iron Tab PO SCH (09:17)
[2021-11-03] MEDS: Ibuprofen 600 MG Tab PO PRN ×3 (01:34→15:05)
--- NOTE | 2021-11-03 05:47 | PCM.SN.2 ---
- Free Text/Narrative Note: Stage I: Hafsa is a 30-year-old 3 para 2-0-0-2 female admitted on 11/01/2021 at 41-0/7 weeks gestational age with an SNEHAL of 10/25/2021 for medical induction of labor due to gestational age. Underwent Pitocin induction of labor initially followed by AROM with resultant mild meconium stained amniotic fluid. heart tones generally were good throughout the course of the labor. At 6 cm she had an epidural placed for labor analgesia with good results. She progressed slowly to approximately 6 cm and then from 7 cm to complete she progressed rapidly. Stage II: Patient precipitously delivered at 1655 hrs. on 11/01/2021 without physician attendance in the delivery room. Nose and mouth were bulb suction. Pitocin was increased to 500 cc/h to facilitate increase in uterine tone. This to help decrease likelihood of bleeding. Cord was clamped x2 and cut by the baby's father. Umbilical cord had 3 vessels. Cord blood was obtained. Patient was noted to have a small second-degree perineal laceration which was repaired using 3-0 Monocryl suture. Epidural analgesia was used for perineal anesthesia with good results. The baby weighed 3860 g (8 pounds 8.2 ounces) had Apgars of 6, 7 and 8 at 1, 5 and 10 minutes. Stage III: The placenta delivered at 1705 hrs. in a Carnes presentation. It appeared intact and complete and was discarded per patient desire. It did appear somewhat green-johnston secondary to the meconium stained amniotic fluid. Estimated blood loss was 200 cc. Epidural catheter was removed without problems. Patient plans to breast-feed. the patient's baby went to level 2 because of complications related to meconium stained amniotic fluid. Baby has done well with at this time and is off oxygen. Mother is done well. She is pumping/breast-feeding without concerns. She has minimal lochia, is voiding well and is ambulating without problems. She is desiring discharge home. Condition: Good.
--- NOTE | 2021-11-03 06:59 | PCM48HPAN ---
Post Anesthesia Note - EVALUATION WITHIN 48HRS OF ANESTHETIC Vital Signs in Normal Range: Yes Patient Participated in Evaluation: Yes Respiratory Function Stable: Yes Airway Patent: Yes Cardiovascular Function Stable: Yes Hydration Status Stable: Yes Pain Control Satisfactory: Yes Nausea and Vomiting Control Satisfactory: Yes Mental Status Recovered: Yes Vital Signs: Last Vital Signs Temp 36.7 C 11/02/21 19:48 Pulse 86 11/02/21 19:48 Resp 14 11/02/21 19:48 BP 101/56 L 11/02/21 19:48 Pulse Ox 96 11/02/21 19:48
[2021-11-03] MEDS: Prenatal Multivitamin with Calcium/Folic Acid/Iron Tab PO SCH (08:31)
[2021-11-03] MEDS: Witch Hazel Medicated Pads 40/Jar TOP PRN (08:31)
[2021-11-03] MEDS ORDERED: FLU Vacc QS2021-22 36MOS UP/PF 60 MCG/0.5 ML Syringe IM ONE (15:00)
[2021-11-03] MEDS: Docusate Sodium 100 MG Cap PO PRN (15:05)
[2021-11-03 16:52] VITALS: BP 91/55; PULSE 87
--- NOTE | 2021-11-04 10:04 | PCM.DCSUM1 ---
Discharge Summary - Hospital Course Free Text/Narrative:: Stage I: Hafsa is a 30-year-old 3 para 2-0-0-2 female admitted on 11/01/2021 at 41-0/7 weeks gestational age with an SNEHAL of 10/25/2021 for medical induction of labor due to gestational age. Underwent Pitocin induction of labor initially followed by AROM with resultant mild meconium stained amniotic fluid. heart tones generally were good throughout the course of the labor. At 6 cm she had an epidural placed for labor analgesia with good results. She progressed slowly to approximately 6 cm and then from 7 cm to complete she progressed rapidly. Stage II: Patient precipitously delivered at 1655 hrs. on 11/01/2021 without physician attendance in the delivery room. Nose and mouth were bulb suction. Pitocin was increased to 500 cc/h to facilitate increase in uterine tone. This to help decrease likelihood of bleeding. Cord was clamped x2 and cut by the baby's father. Umbilical cord had 3 vessels. Cord blood was obtained. Patient was noted to have a small second-degree perineal laceration which was repaired using 3-0 Monocryl suture. Epidural analgesia was used for perineal anesthesia with good results. The baby weighed 3860 g (8 pounds 8.2 ounces) had Apgars of 6, 7 and 8 at 1, 5 and 10 minutes. Stage III: The placenta delivered at 1705 hrs. in a Carnes presentation. It appeared intact and complete and was discarded per patient desire. It did appear somewhat green-johnston secondary to the meconium stained amniotic fluid. Estimated blood loss was 200 cc. Epidural catheter was removed without problems. Patient plans to breast-feed. the patient's baby went to level 2 because of complications related to meconium stained amniotic fluid. Baby has done well with at this time and is off oxygen. Mother is done well. She is pumping/breast-feeding without concerns. She has minimal lochia, is voiding well and is ambulating without problems. She is desiring discharge home. Condition: Good. Diagnosis: Stroke: No - Discharge Data Discharge Date: 11/03/21 Discharge Disposition: Home, Self-Care 01 Condition: Good - Referral to Home Health Primary Care Physician: Moise Hearn MD - Discharge Diagnosis/Problem(s) (1) 41 weeks gestation of SNOMED Code(s): 85096187 ICD Code: Z3A.41 - 41 WEEKS GESTATION OF Status: Acute (2) History of macrosomia in infant in prior , currently SNOMED Code(s): 11008115770135, 14144143376798 ICD Code: O09.299 - SUPRVSN OF PREG W POOR REPRODCTV OR OBSTET HISTORY, UNSP TRI Status: Acute (3) Meconium in amniotic fluid SNOMED Code(s): 153233906 ICD Code: P96.83 - MECONIUM STAINING Status: Acute - Patient Instructions Diet: Regular Diet as Tolerated Activity: As Tolerated Driving: May Drive Today Showering/Bathing: May Shower Notify Provider of: Fever, Increased Pain, Swelling and Redness, Nausea and/or Vomiting - Discharge Plan Home Medications: Home Meds Vit 10/Iron/Folic/Dha [Vitafol-OB + DHA] 1 tab PO DAILY 08/28/17 [History] Acetaminophen [Tylenol] 650 mg PO Q4H PRN tablet 12/24/19 [Rx] Ibuprofen [Motrin] 600 mg PO Q4H PRN tablet 11/03/21 [Rx] Patient Handouts: and Breast Care, Care After Vaginal Delivery Referrals: Moise Hearn MD [Primary Care Provider] - ([facility] .) - Discharge Summary/Plan Comment DC Time >30 min.: No Total # of Minutes for Discharge Time: 10 Discharge Summary/Plan Comment: Discharge instructions: 1. Discharge home 2. Diet, activity and follow-up discussed with patient. Recommend nursing diet with increased calories and calcium. 3. Precautions given concern increased pain, bleeding, temperature, signs/symptoms of DVT/PE. 4. Medications per home medication was printed, discussed with and given to the patient. 5. Return to clinic-[facility]. Hearn[facility] in 2 weeks. Diagnosis: Term -delivered Condition: Good - Patient Data Vitals - Most Recent: Last Vital Signs Temp 36.5 C 11/03/21 14:59 Pulse 87 11/03/21 14:59 Resp 14 11/03/21 08:24 BP 91/55 L 11/03/21 14:59 Pulse Ox 97 11/03/21 14:59 Weight - Most Recent: 83.461 kg I&O - Last 24 hours: Intake & Output 11/03/21 11/04/21 11/04/21 22:59 06:59 14:59 Intake Total 120 Balance 120 Med Orders - Current: Current Medications Discontinued Medications Acetaminophen (Acetaminophen 325 Mg Tab) 650 mg PO Q4H PRN PRN Reason: mild pain or fever Last Admin: 11/02/21 09:17 Dose: 650 mg Documented by: Benzocaine/Menthol (Benzocaine/Menthol 20%-0.5% Bruce 78 Gm Cannister) 0 gm TOP ASDIRECTED PRN PRN Reason: Perineal Comfort Measure Last Admin: 11/03/21 15:08 Dose: 1 can Documented by: Calcium Carbonate/Glycine (Calcium Carbonate 500 Mg Tab.Chew) 1,000 mg PO Q2H PRN PRN Reason: Indigestion Diphenhydramine HCl (Diphenhydramine 50 Mg/Ml Sdv) 25 mg IVPUSH Q6H PRN PRN Reason: pruritis Docusate Sodium (Docusate Sodium 100 Mg Cap) 100 mg PO BID PRN PRN Reason: Constipation Last Admin: 11/03/21 15:05 Dose: 100 mg Documented by: Ephedrine Sulfate (Ephedrine 50 Mg/Ml Sdv) 5 mg IVPUSH ASDIRECTED PRN PRN Reason: Hypotension Fentanyl (Fentanyl 100 Mcg/2 Ml Sdv) 100 mcg EPIDUR Q3H PRN PRN Reason: Pain Last Admin: 11/01/21 15:27 Dose: 100 mcg Documented by: Fentanyl/Bupivacaine HCl (Bupivacaine/Fentanyl/Ns 100 Ml Bag) 100 ml EPIDUR ASDIRECTED PRN PRN Reason: Pain Last Admin: 11/01/21 15:27 Dose: 100 ml Documented by: Oxytocin/Lactated Ringer's (Pitocin In Lr 10 Units/1,000 Ml) 10 unit in 1,000 mls @ 12 mls/hr IV TITRATE JOSE LUIS; Protocol Last Titration: 11/01/21 17:36 Dose: 41.67 munits/min, 250 mls/hr Documented by: Oxytocin/Lactated Ringer's (Pitocin In Lr 10 Units/1,000 Ml) 10 unit in 1,000 mls @ 500 mls/hr IV .CONTINUOUS JOSE LUIS Lactated Ringer's (Ringers, Lactated) 1,000 mls @ 100 mls/hr IV ASDIRECTED [facility] Last Infusion: 11/01/21 14:45 Dose: 999 mls/hr Documented by: Ibuprofen (Ibuprofen 600 Mg Tab) 600 mg PO Q4H PRN PRN Reason: Mild pain or fever Last Admin: 11/03/21 15:05 Dose: 600 mg Documented by: Influenza Virus Vaccine (Pharmacy To Dose - Influenza Vaccine) 1 each IM ONETIME ONE Stop: 11/02/21 09:25 Influenza Virus Vaccine (Flu Vacc [id number] 36mos Up/Pf 60 Mcg/0.5 Ml Syringe) 60 mcg IM .ONCE ONE Stop: 11/01/21 09:31 Influenza Virus Vaccine (Flu Vacc [id number] 36mos Up/Pf 60 Mcg/0.5 Ml Syringe) 60 mcg IM .ONCE ONE Stop: 11/03/21 15:01 Last Admin: 11/03/21 15:07 Dose: 60 mcg Documented by: Lidocaine/Epinephrine (Lidocaine 1.5% With Epinephrine 1:200,000 5 Ml Amp) 10 ml .ROUTE .STK-MED ONE Stop: 11/01/21 12:01 Nalbuphine HCl (Nalbuphine 10 Mg/1 Ml Vial) 10 mg IVPUSH Q2H PRN PRN Reason: Pain Last Admin: 11/01/21 14:53 Dose: 10 mg Documented by: Ondansetron HCl (Ondansetron 4 Mg/2 Ml Sdv) 4 mg IVPUSH Q4H PRN PRN Reason: Nausea/Vomiting Prenat Multivit/[place]/Iron/Folic Ac ( Multivitamin With Calcium/Folic Acid/Iron Tab) 1 each PO DAILY [facility] Last Admin: 11/03/21 08:31 Dose: 1 each Documented by: Sodium Chloride (Sodium Chloride 0.9% 10 Ml Syringe) 10 ml FLUSH ASDIRECTED PRN PRN Reason: Keep Vein Open Witch Celeste (Witch Celeste Medicated Pads 40/Jar) 1 pad TOP ASDIRECTED PRN PRN Reason: Perineal Comfort Measure Last Admin: 11/03/21 08:31 Dose: 1 tub Documented by:
== END 2021-11-03 15:10 | disposition home or self-care (01) | DRG 560 ==
LOC: JD.OB 07:30 → OBSVTOIN 16:55 → JD.OB 16:56
PROVIDERS: ADMIT Obstetrics & Gynecology; ATTEND Obstetrics & Gynecology
PROC: 10E0XZZ Delivery of Products of Conception, External Approach (ICD-10-PCS; principal; 2021-11-01)
PROC: 10907ZC Drainage of Amniotic Fluid, Therapeutic from Products of Conception, Via Natural or Artificial Opening (ICD-10-PCS; 2021-11-01)
PROC: 3E0R3BZ Introduction of Anesthetic Agent into Spinal Canal, Percutaneous Approach (ICD-10-PCS; 2021-11-01)
PROC: 00HU33Z Insertion of Infusion Device into Spinal Canal, Percutaneous Approach (ICD-10-PCS; 2021-11-01)
PROC: 0KQM0ZZ Repair Perineum Muscle, Open Approach (ICD-10-PCS; 2021-11-01)
PROC: 3E033VJ Introduction of Other Hormone into Peripheral Vein, Percutaneous Approach (ICD-10-PCS; 2021-11-01)
PROC: 3E02340 Introduction of Influenza Vaccine into Muscle, Percutaneous Approach (ICD-10-PCS; 2021-11-01)
DX: O48.0 Post-term pregnancy (principal); O77.0 Labor and delivery complicated by meconium in amniotic fluid; Z3A.41 41 weeks gestation of pregnancy; Z37.0 Single live birth; O62.3 Precipitate labor; O70.1 Second degree perineal laceration during delivery; Z20.822 Contact with and (suspected) exposure to COVID-19; Z23 Encounter for immunization
CPT/HCPCS: 01967; 36415; 51702; 59025; 59409; 82947; 85025; 86592; 86850; 86900; 86901; 90686; A9270-GY; G0008; J2300; J2590; J3010; J7120; U0002